=== PATIENT | male | born 1960 | race Caucasian/White ===

== ENCOUNTER 2019-04-23 13:00 | Outpatient (CLI) | payer OTHER, SELFPAY ==
[2019-04-23 13:28] LABS: Basophils % 0.7 %; Eosinophils # 0.2 10^3/uL (0.0-0.8); Eosinophils % 7.1 %; Hematocrit 34.6 % (42.0-52.0); Hemoglobin 12.3 g/dL (11.7-16.6); Lymphocytes # 0.9 10^3/uL (0.8-4.8); Lymphocytes % 29.8 %; Mean Corpuscular HGB Conc 35.5 g/dL (30.0-36.0); Mean Corpuscular Hemoglobin 34.6 pg (28.0-34.0); Mean Corpuscular Volume 97.5 fL (80-94); Mean Platelet Volume 11.2 fL (7.4-10.4); Monocytes # 0.3 10^3/uL (0.2-0.9); Monocytes % 10.5 %; Neutrophils # 1.5 10^3/uL (1.8-7.7); Neutrophils % 51.6 %; Nucleated Red Blood Cells % 0 %; Platelet Count 56 10^3/cmm (130-400); Red Blood Count 3.55 10^6/uL (4.1-5.3); Red Cell Distribution Width 13.6 % (12.1-15.1)
== END 2019-04-23 13:01 | disposition home or self-care (01) ==
LOC: ONCMED 13:03
PROVIDERS: Family Provider Internal Medicine; PCP Internal Medicine; Visit Provider Internal Medicine Hematology & Oncology
DX: E83.119 Hemochromatosis, unspecified (principal)
CPT/HCPCS: 85025

== ENCOUNTER 2019-04-25 14:11 | Outpatient (CLI) | payer OTHER, SELFPAY ==
[2019-04-25] MEDS: sodium chloride 0.9% 250 ML 999 ML IV ×2 (15:00→15:31)
== END 2019-04-25 14:12 | disposition home or self-care (01) ==
LOC: ONCMED 14:14
PROVIDERS: Family Provider Internal Medicine; PCP Internal Medicine; Visit Provider Internal Medicine Medical Oncology
DX: E83.119 Hemochromatosis, unspecified (principal)
CPT/HCPCS: 96360; J7050

== ENCOUNTER 2019-04-26 10:39 | Outpatient (CLI) | payer OTHER, SELFPAY ==
[2019-04-26] MEDS: sodium chloride 0.9% 500 ML 999 ML IV (11:15)
== END 2019-04-26 10:40 | disposition home or self-care (01) ==
LOC: ONCMED 10:42
PROVIDERS: Family Provider Internal Medicine; PCP Internal Medicine; Visit Provider Internal Medicine Hematology & Oncology
DX: E86.0 Dehydration (principal)
CPT/HCPCS: 96360; J7040

== ENCOUNTER 2019-05-21 12:43 | Outpatient (CLI) | payer OTHER, SELFPAY ==
[2019-05-21 13:31] LABS: Basophils % 0.6 %; Eosinophils # 0.2 10^3/uL (0.0-0.8); Eosinophils % 7.1 %; Hematocrit 35.7 % (42.0-52.0); Hemoglobin 12.8 g/dL (11.7-16.6); Lymphocytes % 29.2 %; Mean Corpuscular HGB Conc 35.9 g/dL (30.0-36.0); Mean Corpuscular Hemoglobin 34.6 pg (28.0-34.0); Mean Corpuscular Volume 96.5 fL (80-94); Mean Platelet Volume 11.7 fL (7.4-10.4); Monocytes # 0.4 10^3/uL (0.2-0.9); Neutrophils # 1.7 10^3/uL (1.8-7.7); Neutrophils % 51.8 %; Nucleated Red Blood Cells % 0 %; Platelet Count 59 10^3/cmm (130-400); Red Cell Distribution Width 13.5 % (12.1-15.1); White Blood Count 3.4 10^3/uL (4.0-10.0)
== END 2019-05-21 12:44 | disposition home or self-care (01) ==
LOC: ONCMED 12:49
PROVIDERS: Family Provider Internal Medicine; PCP Internal Medicine; Visit Provider Internal Medicine Hematology & Oncology
DX: E83.119 Hemochromatosis, unspecified (principal)
CPT/HCPCS: 36415; 85025; 99195; 99211

== ENCOUNTER 2019-06-20 12:49 | Outpatient (CLI) | payer OTHER, SELFPAY ==
[2019-06-20 13:10] LABS: Eosinophils # 0.2 10^3/uL (0.0-0.8); Eosinophils % 6.8 %; Hematocrit 36.6 % (42.0-52.0); Hemoglobin 12.9 g/dL (11.7-16.6); Lymphocytes # 0.8 10^3/uL (0.8-4.8); Mean Corpuscular HGB Conc 35.2 g/dL (30.0-36.0); Mean Corpuscular Hemoglobin 34.8 pg (28.0-34.0); Mean Corpuscular Volume 98.7 fL (80-94); Mean Platelet Volume 11.4 fL (7.4-10.4); Monocytes # 0.3 10^3/uL (0.2-0.9); Monocytes % 10.7 %; Neutrophils # 1.7 10^3/uL (1.8-7.7); Neutrophils % 56.5 %; Nucleated Red Blood Cells % 0 %; Platelet Count 55 10^3/cmm (130-400); Red Blood Count 3.71 10^6/uL (4.1-5.3); White Blood Count 3.1 10^3/uL (4.0-10.0)
[2019-06-20 13:22] LABS: Ferritin 99 ng/mL (30-400)
--- NOTE | 2019-06-20 14:29 | ONC FU_ITS ---
Dr. Deluca follow up note Patient: Kris Horn Unit #: [id number]: 1960 Dicatated By: Reanna Deluca M.D.Date of Visit:Jun 20, 2019 Onc Med Follow-up/Prog Note History of Present Illness: Mr. Kris Horn, 58-year-old gentleman with history of elevated ferritin for long time, in fact about 10 years ago he was seen in hematology clinic by Dr. Brian and workup was done for hemochromatosis. As per patient, at that time his ferritin was high but it was not confirmed whether he has hemochromatosis as expected gene mutation was not observed. But his sister has same problem for which she underwent genetic evaluation and it was confirmed that she has hemochromatosis and now being managed by her steaming machine operator with phlebotomies. Patient said, 7-8 years ago he was diagnosed with esophageal varices for which he was referred to [facility] in [place] where he underwent procedure to treat his esophageal varices as he was bleeding profusely from there. And was treated with medicines to control his portal hypertension. At the same time he had MRI scan of the liver done which confirmed cirrhosis due to alcohol abuse and patient quit drinking at that time and follow-up MRI scan of liver did show some improvement. And along with the liver cirrhosis he was also found to have splenomegaly which was causing thrombocytopenia. Patient said recently he developed severe pain in his feet and he was diagnosed with plantar fasciitis and as a part of workup his primary care physician checked his iron studies and it showed elevated ferritin level , and due to history of iron abnormality, he been referred to hematology clinic to rule out hemochromatosis / iron overload.Now being treated with phlebotomy to keep ferritin less than 100 Patient has type II diabetes mellitus which is being managed by oral hypoglycemic He also has hepatic cirrhosis due to alcohol abuse but he quit drinking about 8 years. Came for follow-up, denies any specific complaint except generalized weakness and fatigue, on gabapentin and also has been busy renovating his new house. No jaundice, no fever or chills, no lightheadedness, no palpitation. Tolerating monthly phlebotomy well Medications: Gabapentin 1 Capsule (of 300 mg) Oral b.i.d., MetFORMIN HCl 1 (1000 mg) Tablet Oral b.i.d., Nadolol 1 (20 mg) Tablet Oral daily, Spironolactone 1 (50 mg) Tablet Oral daily Allergies: No Known Allergies. Review of Systems: Constitutional - Appetite is fair and weight is slowly declining. No fever, chills, hot flashes, or night sweats. Energy level is poor, ENMT - Patient has some sinus congestion/drainage. No mouth sores. No sore throat or difficulty swallowing, Hematologic/Lymphatic - No abnormal bruising or bleeding, Respiratory - No shortness of breath. No cough. No pleuritic pain or hemoptysis, Cardiovascular - No angina pain. No palpitations, Gastrointestinal - No nausea or vomiting. No heartburn or acid reflux. No diarrhea or constipation. No blood in the stool or black stools, Genitourinary (M) - No dysuria or hematuria. No urinary frequency. No urgency or incontinence, Musculoskeletal - No joint or bone pain, Neurologic - No headache or dizziness. Patient has some numbness/paresthesias in lower extremities at night.No other focal neurologic symptoms, Psychiatric - Patient has some anxiety and depression. No insomnia. Vital Signs: Performed on Jun 20, 2019 13:58 Height - 73.00 in Weight - 252.8 lbs (LOW) BSA - 2.38 sq.m BMI - 33.35 (HIGH) Temperature - 97.2 F (LOW) Pulse - 65 /min Respiration - 18 /min BP - 102/70 mm(hg) O2 Sat - 97 % Pain - 0 Performance Status: 0 - Fully active, able to carry on all predisease activities without restrictions. (ECOG) Physical Examination: ENMT - No oral exudates, ulcers, masses, thrush or mucositis. Oropharynx clear. Tongue normal, Respiratory - Lungs are clear to auscultation without rhonchi or wheezing, Cardiovascular - Regular rate and rhythm of heart, Abdomen - Non-tender, non-distended, Good bowel sounds. No guarding or rebound tenderness. No pulsatile masses, Extremities - no edema. Lab/Imaging: Test performed on May 21, 2019 13:00 WBC 3.4 10 3/uL RBC 3.70 10 6/uL HGB 12.8 g/dL HCT 35.7 % MCV 96.5 fL MCH 34.6 pg MCHC 35.9 g/dL RDW 13.5 % Platelet Count 59 10 3/cmm MPV 11.7 fL Neutrophils 1.7 10 3/uL Lymphocytes 1.0 10 3/uL Monocytes 0.4 10 3/uL Eosinophils 0.2 10 3/uL Basophils 0.0 10 3/uL Neutrophil % 51.8 % Lymphocyte % 29.2 % Monocyte % 11.0 % Eosinophil % 7.1 % Basophils % 0.6 % Test performed on Apr 23, 2019 13:08 Manual Lymphocytes 29.8 % Manual Monocytes 10.5 % Manual Eosinophils 7.1 % Manual Basophils 0.7 % NRBCs 0.0 /100 WBC Test performed on Mar 21, 2019 12:14 Ferritin 125.0 ng/ml Impression: Elevated ferritin level with macrocytosis, questionable etiology Positive for rare HFE H63D homozygous mutation Ferritin level of 746 ng per mL normal being 30-400. Checked on 03/09/[address] Brian about 10 years ago, for hemochromatosis was inconclusive Hemochromatosis profile done on 04/22/2017 showed negative for C282Y mutation, negative for as S 65C mutation, homozygous H63D mutation Repeat ferritin was 520.6 normal being less than 388. 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 Plan: Discussed with patient regarding his labs white blood count 3.1 hemoglobin 12.9 hematocrit 36.6 platelets 55,000 ferritin 99 Clinically, patient is doing well, tolerating phlebotomy every month well. We'll proceed with next monthly phlebotomy today and then continue every month as long as tolerated and goal is to get his ferritin close to 50. 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 Is stable, will continue to monitor Signed By: Reanna Deluca M.D. <<Signature on File>>
== END 2019-06-20 12:50 | disposition home or self-care (01) ==
LOC: ONCMED 12:50
PROVIDERS: Family Provider Internal Medicine; PCP Internal Medicine; Visit Provider Internal Medicine Hematology & Oncology
DX: E83.110 Hereditary hemochromatosis (principal); E11.9 Type 2 diabetes mellitus without complications; K70.30 Alcoholic cirrhosis of liver without ascites; F10.21 Alcohol dependence, in remission; K76.6 Portal hypertension; R16.1 Splenomegaly, not elsewhere classified; D69.59 Other secondary thrombocytopenia; Z79.84 Long term (current) use of oral hypoglycemic drugs
CPT/HCPCS: 82728; 85025; 99195; G0463

== ENCOUNTER 2019-07-19 12:22 | Outpatient (CLI) | payer OTHER, SELFPAY ==
[2019-07-19 13:21] LABS: Basophils % 0.4 %; Eosinophils # 0.2 10^3/uL (0.0-0.8); Eosinophils % 6.9 %; Hematocrit 36.2 % (42.0-52.0); Hemoglobin 12.8 g/dL (11.7-16.6); Lymphocytes # 0.8 10^3/uL (0.8-4.8); Lymphocytes % 35.2 %; Mean Corpuscular HGB Conc 35.4 g/dL (30.0-36.0); Mean Corpuscular Hemoglobin 35.2 pg (28.0-34.0); Mean Corpuscular Volume 99.5 fL (80-94); Mean Platelet Volume 12.7 fL (7.4-10.4); Monocytes # 0.2 10^3/uL (0.2-0.9); Monocytes % 8.2 %; Neutrophils # 1.1 10^3/uL (1.8-7.7); Neutrophils % 48.9 %; Nucleated Red Blood Cells % 0 %; Platelet Count 44 10^3/cmm (130-400); Red Blood Count 3.64 10^6/uL (4.1-5.3); Red Cell Distribution Width 13.9 % (12.1-15.1); White Blood Count 2.3 10^3/uL (4.0-10.0)
== END 2019-07-19 12:23 | disposition home or self-care (01) ==
LOC: ONCMED 12:24
PROVIDERS: Family Provider Internal Medicine; PCP Internal Medicine; Visit Provider Internal Medicine Hematology & Oncology
DX: E83.119 Hemochromatosis, unspecified (principal)
CPT/HCPCS: 36415; 85025; 99195; 99211

== ENCOUNTER 2019-08-20 12:05 | Outpatient (CLI) | payer OTHER, SELFPAY ==
[2019-08-20 13:07] LABS: Basophils % 0.7 %; Eosinophils # 0.2 10^3/uL (0.0-0.8); Eosinophils % 8.2 %; Hematocrit 36.2 % (42.0-52.0); Hemoglobin 12.8 g/dL (11.7-16.6); Lymphocytes # 0.8 10^3/uL (0.8-4.8); Lymphocytes % 28.7 %; Mean Corpuscular HGB Conc 35.4 g/dL (30.0-36.0); Mean Corpuscular Hemoglobin 35.4 pg (28.0-34.0); Mean Platelet Volume 11.6 fL (7.4-10.4); Monocytes # 0.3 10^3/uL (0.2-0.9); Monocytes % 9.7 %; Neutrophils # 1.5 10^3/uL (1.8-7.7); Neutrophils % 52.3 %; Nucleated Red Blood Cells % 0 %; Platelet Count 52 10^3/cmm (130-400); Red Blood Count 3.62 10^6/uL (4.1-5.3); Red Cell Distribution Width 13.8 % (12.1-15.1); White Blood Count 2.8 10^3/uL (4.0-10.0)
[2019-08-20 14:45] LABS: Ferritin 101 ng/mL (30-400)
== END 2019-08-20 12:06 | disposition home or self-care (01) ==
LOC: ONCMED 12:05
PROVIDERS: Family Provider Internal Medicine; PCP Internal Medicine; Visit Provider Internal Medicine Medical Oncology
DX: E83.119 Hemochromatosis, unspecified (principal)
CPT/HCPCS: 36415; 82728; 85025; 99195

== ENCOUNTER 2019-08-30 13:00 | Outpatient (CLI) | payer OTHER, SELFPAY ==
[2019-08-30 13:52] LABS: Basophils % 0.8 %; Eosinophils # 0.2 10^3/uL (0.0-0.8); Eosinophils % 6.9 %; Hematocrit 35.9 % (42.0-52.0); Hemoglobin 12.9 g/dL (11.7-16.6); Lymphocytes # 0.8 10^3/uL (0.8-4.8); Lymphocytes % 30.4 %; Mean Corpuscular HGB Conc 35.9 g/dL (30.0-36.0); Mean Corpuscular Hemoglobin 35.2 pg (28.0-34.0); Mean Corpuscular Volume 98.1 fL (80-94); Mean Platelet Volume 11.6 fL (7.4-10.4); Monocytes # 0.3 10^3/uL (0.2-0.9); Monocytes % 9.6 %; Neutrophils # 1.4 10^3/uL (1.8-7.7); Neutrophils % 52.3 %; Nucleated Red Blood Cells % 0 %; Platelet Count 48 10^3/cmm (130-400); Red Blood Count 3.66 10^6/uL (4.1-5.3); Red Cell Distribution Width 13.5 % (12.1-15.1); White Blood Count 2.6 10^3/uL (4.0-10.0)
[2019-08-30] MEDS: sodium chloride 0.9% 250 ML 999 ML IV (14:00)
[2019-08-30 14:03] LABS: Ferritin 93 ng/mL (30-400)
== END 2019-08-30 13:01 | disposition home or self-care (01) ==
PROVIDERS: PCP Internal Medicine; Visit Provider Internal Medicine Hematology & Oncology
DX: D75.89 Other specified diseases of blood and blood-forming organs (principal); E83.119 Hemochromatosis, unspecified; K74.60 Unspecified cirrhosis of liver; K76.6 Portal hypertension; R16.1 Splenomegaly, not elsewhere classified; D69.59 Other secondary thrombocytopenia; D72.819 Decreased white blood cell count, unspecified
CPT/HCPCS: 82728; 85025; 99195; J7050

== ENCOUNTER 2019-09-19 12:12 | Outpatient (CLI) | payer OTHER, SELFPAY ==
[2019-09-19 13:05] LABS: Basophils % 1.1 %; Eosinophils # 0.2 10^3/uL (0.0-0.8); Eosinophils % 6.4 %; Hematocrit 33.4 % (42.0-52.0); Hemoglobin 11.9 g/dL (11.7-16.6); Lymphocytes # 0.9 10^3/uL (0.8-4.8); Lymphocytes % 30.6 %; Mean Corpuscular HGB Conc 35.6 g/dL (30.0-36.0); Mean Corpuscular Hemoglobin 35.1 pg (28.0-34.0); Mean Corpuscular Volume 98.5 fL (80-94); Mean Platelet Volume 11.9 fL (7.4-10.4); Monocytes # 0.3 10^3/uL (0.2-0.9); Monocytes % 9.3 %; Neutrophils # 1.5 10^3/uL (1.8-7.7); Neutrophils % 52.6 %; Nucleated Red Blood Cells % 0 %; Platelet Count 52 10^3/cmm (130-400); Red Blood Count 3.39 10^6/uL (4.1-5.3); Red Cell Distribution Width 13.4 % (12.1-15.1); White Blood Count 2.8 10^3/uL (4.0-10.0)
[2019-09-19 13:38] LABS: Ferritin 89 ng/mL (30-400)
--- NOTE | 2019-09-19 15:09 | ONC FU_ITS ---
Dr. Deluca follow up note Patient: Kris Horn Unit #: [id number]: 1960 Dicatated By: Reanna Deluca M.D.Date of Visit:Sep 19, 2019 Onc Med Follow-up/Prog Note History of Present Illness: Mr. Kris Horn, 59-year-old gentleman with history of elevated ferritin for long time, in fact about 10 years ago he was seen in hematology clinic by Dr. Brian and workup was done for hemochromatosis. As per patient, at that time his ferritin was high but it was not confirmed whether he has hemochromatosis as expected gene mutation was not observed. But his sister has same problem for which she underwent genetic evaluation and it was confirmed that she has hemochromatosis and now being managed by her bottle gauger with phlebotomies. Patient said, 7-8 years ago he was diagnosed with esophageal varices for which he was referred to [facility] in [place] where he underwent procedure to treat his esophageal varices as he was bleeding profusely from there. And was treated with medicines to control his portal hypertension. At the same time he had MRI scan of the liver done which confirmed cirrhosis due to alcohol abuse and patient quit drinking at that time and follow-up MRI scan of liver did show some improvement. And along with the liver cirrhosis he was also found to have splenomegaly which was causing thrombocytopenia. Patient said recently he developed severe pain in his feet and he was diagnosed with plantar fasciitis and as a part of workup his primary care physician checked his iron studies and it showed elevated ferritin level , and due to history of iron abnormality, he been referred to hematology clinic to rule out hemochromatosis / iron overload.Now being treated with phlebotomy to keep ferritin less than 100 Patient has type II diabetes mellitus which is being managed by oral hypoglycemic He also has hepatic cirrhosis due to alcohol abuse but he quit drinking about 8 years. Came for follow-up, denies any specific complaints, no fever or chills, no nausea or vomiting, no diarrhea constipation, no melena or hematochezia, no nosebleed or gum bleed, no petechiae or ecchymosis, no jaundice Medications: Gabapentin 1 Capsule (of 300 mg) Oral b.i.d., MetFORMIN HCl 1 (1000 mg) Tablet Oral b.i.d., Nadolol 1 (20 mg) Tablet Oral daily, Spironolactone 1 (50 mg) Tablet Oral daily Allergies: No Known Allergies. Review of Systems: Constitutional - Appetite is fair and weight is slowly declining. No fever, chills, hot flashes, or night sweats. Energy level is poor, ENMT - Patient has some sinus congestion/drainage. No mouth sores. No sore throat or difficulty swallowing, Hematologic/Lymphatic - No abnormal bruising or bleeding, Respiratory - No shortness of breath. No cough. No pleuritic pain or hemoptysis, Cardiovascular - No angina pain. No palpitations, Gastrointestinal - No nausea or vomiting. No heartburn or acid reflux. No diarrhea or constipation. No blood in the stool or black stools, Genitourinary (M) - No dysuria or hematuria. No urinary frequency. No urgency or incontinence, Musculoskeletal - No joint or bone pain, Neurologic - No headache or dizziness. Patient has some numbness/paresthesias in lower extremities at night.No other focal neurologic symptoms, Psychiatric - Patient has some anxiety and depression. No insomnia. Vital Signs: Performed on Sep 19, 2019 13:39 Height - 73.00 in Weight - 247.8 lbs (LOW) BSA - 2.36 sq.m BMI - 32.69 (HIGH) Temperature - 97.8 F (LOW) Pulse - 70 /min Respiration - 18 /min BP - 111/71 mm(hg) O2 Sat - 98 % Pain - 0 Performance Status: 0 - Fully active, able to carry on all predisease activities without restrictions. (ECOG) Physical Examination: ENMT - no mouth sores, no thrush, Respiratory - Lungs are clear, Cardiovascular - Regular rate and rhythm of heart, Abdomen - soft, bowel sounds present, Extremities - no edema or rash or jaundice. Lab/Imaging: Test performed on Sep 19, 2019 12:28 Ferritin 89 ng/mL WBC 2.8 10^9/L RBC 3.39 10^12/L HGB 11.9 g/dL HCT 33.4 % MCV 98.5 fl MCH 35.1 pg MCHC 35.6 g/dL RDW 13.4 % Platelet Count 52 10^9/L MPV 11.9 fL Neutrophils (Gran) 1.5 10^9/L Lymphocytes 0.9 10^9/L Monocytes 0.3 10^9/L Eosinophils 0.2 10^9/L Basophils 0.0 10^9/L Manual Lymphocytes 30.6 % Manual Monocytes 9.3 % Manual Eosinophils 6.4 % Manual Basophils 1.1 % Test performed on August 30, 2019 13:31 Neutrophil % 52.3 % Lymphocyte % 30.4 % Monocyte % 9.6 % Eosinophil % 6.9 % Basophils % 0.8 % Test performed on Apr 23, 2019 13:08 NRBCs 0.0 /100 WBC Impression: Elevated ferritin level with macrocytosis, questionable etiology Positive for rare HFE H63D homozygous mutation Ferritin level of 746 ng per mL normal being 30-400. Checked on 03/09/[address] Brian about 10 years ago, for hemochromatosis was inconclusive Hemochromatosis profile done on 04/22/2017 showed negative for C282Y mutation, negative for as S 65C mutation, homozygous H63D mutation Repeat ferritin was 520.6 normal being less than 388. 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 Plan: Discussed with patient regarding his labs white blood count 2.8 hemoglobin 11.9 crit 33.4 platelets 52,000 ferritin 89 Clinically, patient is doing well, with no new signs symptoms. Now being treated with phlebotomy on as-needed basis keep ferritin below 100, today's lab shows ferritin is 89 and hemoglobin stable around 11.9 , whereas [id number] 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 but stable, will continue to monitor return to clinic in 2 months with CBC and ferritin Signed By: Reanna Deluca M.D. <<Signature on File>>
== END 2019-09-19 12:13 | disposition home or self-care (01) ==
LOC: ONCMED 12:18
PROVIDERS: PCP Internal Medicine; Visit Provider Internal Medicine Hematology & Oncology
DX: D75.89 Other specified diseases of blood and blood-forming organs (principal); M72.2 Plantar fascial fibromatosis; K57.92 Diverticulitis of intestine, part unspecified, without perforation or abscess without bleeding; K74.60 Unspecified cirrhosis of liver; K76.6 Portal hypertension; R16.1 Splenomegaly, not elsewhere classified; D69.6 Thrombocytopenia, unspecified; D72.819 Decreased white blood cell count, unspecified; Z83.2 Family history of diseases of the blood and blood-forming organs and certain disorders involving the immune mechanism
CPT/HCPCS: 82728; 85025; G0463

== ENCOUNTER 2019-11-20 11:11 | Outpatient (CLI) | payer OTHER, SELFPAY ==
[2019-11-20 11:33] LABS: Basophils % 0.4 %; Eosinophils # 0.1 10^3/uL (0.0-0.8); Eosinophils % 5.5 %; Hematocrit 35.1 % (42.0-52.0); Hemoglobin 12.6 g/dL (11.7-16.6); Lymphocytes # 0.8 10^3/uL (0.8-4.8); Lymphocytes % 32.2 %; Mean Corpuscular HGB Conc 35.9 g/dL (30.0-36.0); Mean Corpuscular Hemoglobin 35.6 pg (28.0-34.0); Mean Corpuscular Volume 99.2 fL (80-94); Mean Platelet Volume 11.4 fL (7.4-10.4); Monocytes # 0.2 10^3/uL (0.2-0.9); Monocytes % 10.2 %; Neutrophils # 1.22 10^3/uL (1.8-7.7); Neutrophils % 51.7 %; Nucleated Red Blood Cells % 0 %; Platelet Count 45 10^3/cmm (130-400); Red Blood Count 3.54 10^6/uL (4.1-5.3); Red Cell Distribution Width 13.9 % (12.1-15.1); White Blood Count 2.4 10^3/uL (4.0-10.0)
[2019-11-20 11:46] LABS: Ferritin 140 ng/mL (30-400)
[2019-11-20 15:02] LABS: Erythrocyte Sedimentation Rate 11 mm/hr (0-10)
--- NOTE | 2019-11-20 16:19 | ONC FU_ITS ---
Dr. Deluca follow up note Patient: Kris Horn Unit #: [id number]: 1960 Dicatated By: Reanna Deluca M.D.Date of Visit:Nov 20, 2019 Onc Med Follow-up/Prog Note History of Present Illness: Mr. Kris Horn, 59-year-old gentleman with history of elevated ferritin for long time, in fact about 10 years ago he was seen in hematology clinic by Dr. Brian and workup was done for hemochromatosis. As per patient, at that time his ferritin was high but it was not confirmed whether he has hemochromatosis as expected gene mutation was not observed. But his sister has same problem for which she underwent genetic evaluation and it was confirmed that she has hemochromatosis and now being managed by her headliner installer with phlebotomies. Patient said, 7-8 years ago he was diagnosed with esophageal varices for which he was referred to [facility] in [place] where he underwent procedure to treat his esophageal varices as he was bleeding profusely from there. And was treated with medicines to control his portal hypertension. At the same time he had MRI scan of the liver done which confirmed cirrhosis due to alcohol abuse and patient quit drinking at that time and follow-up MRI scan of liver did show some improvement. And along with the liver cirrhosis he was also found to have splenomegaly which was causing thrombocytopenia. Patient said recently he developed severe pain in his feet and he was diagnosed with plantar fasciitis and as a part of workup his primary care physician checked his iron studies and it showed elevated ferritin level , and due to history of iron abnormality, he been referred to hematology clinic to rule out hemochromatosis / iron overload.Now being treated with phlebotomy to keep ferritin less than 100 Patient has type II diabetes mellitus which is being managed by oral hypoglycemic He also has hepatic cirrhosis due to alcohol abuse but he quit drinking about 8 years. Came for follow-up, denies any specific complaint except generalized weakness and fatigue but no nausea or vomiting no diarrhea or constipation, no jaundice, no melena or hematochezia, no hemoptysis or hematemesis, no fever or chills. Tolerating phlebotomies on as-needed basis well Medications: Gabapentin 1 Capsule (of 300 mg) Oral t.i.d., MetFORMIN HCl 1 (1000 mg) Tablet Oral b.i.d., Nadolol 1 (20 mg) Tablet Oral daily, Spironolactone 1 (50 mg) Tablet Oral daily Allergies: No Known Allergies. Review of Systems: Constitutional - Appetite is fair and weight is slowly declining. No fever, chills, hot flashes, or night sweats. Energy level is poor, ENMT - Patient has some sinus congestion/drainage. No mouth sores. No sore throat or difficulty swallowing, Hematologic/Lymphatic - No abnormal bruising or bleeding, Respiratory - No shortness of breath. No cough. No pleuritic pain or hemoptysis, Cardiovascular - No angina pain. No palpitations, Gastrointestinal - No nausea or vomiting. No heartburn or acid reflux. No diarrhea or constipation. No blood in the stool or black stools, Genitourinary (M) - No dysuria or hematuria. No urinary frequency. No urgency or incontinence, Musculoskeletal - No joint or bone pain, Neurologic - No headache or dizziness. Patient has some numbness/paresthesias in lower extremities at night.No other focal neurologic symptoms, Psychiatric - Patient has some anxiety and depression. No insomnia. Vital Signs: Performed on Nov 20, 2019 12:58 Height - 73.00 in Weight - 251.2 lbs (HIGH) BSA - 2.37 sq.m BMI - 33.14 (HIGH) Temperature - 97.7 F (LOW) Pulse - 69 /min Respiration - 24 /min BP - 117/67 mm(hg) O2 Sat - 97 % Pain - 0 Performance Status: 1 - No physically strenuous activity, but ambulatory and able to carry out light or sedentary work (e.g. office work, light house work). (ECOG) Physical Examination: ENMT - No mouth sores, no thrush, no jaundice, Respiratory - Lungs are clear, Cardiovascular - Regular rate and rhythm of heart, Abdomen - Soft, bowel sounds present, Extremities - No visible edema. Lab/Imaging: Test performed on Sep 19, 2019 12:28 Ferritin 89 ng/mL WBC 2.8 10 3/uL RBC 3.39 10 6/uL HGB 11.9 g/dL HCT 33.4 % MCV 98.5 fL MCH 35.1 pg MCHC 35.6 g/dL RDW 13.4 % Platelet Count 52 10 3/cmm MPV 11.9 fL Neutrophils 1.5 10 3/uL Lymphocytes 0.9 10 3/uL Monocytes 0.3 10 3/uL Eosinophils 0.2 10 3/uL Basophils 0.0 10 3/uL Neutrophil % 52.6 % Lymphocyte % 30.6 % Manual Lymphocytes 30.6 % Manual Monocytes 9.3 % Monocyte % 9.3 % Eosinophil % 6.4 % Manual Eosinophils 6.4 % Basophils % 1.1 % Manual Basophils 1.1 % Impression: Elevated ferritin level with macrocytosis, questionable etiology Positive for rare HFE H63D homozygous mutation Ferritin level of 746 ng per mL normal being 30-400. Checked on 03/09/[address] Brian about 10 years ago, for hemochromatosis was inconclusive Hemochromatosis profile done on 04/22/2017 showed negative for C282Y mutation, negative for as S 65C mutation, homozygous H63D mutation ( Moderate risk for iron overload) Repeat ferritin was 520.6 normal being less than 388. 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 Plan: Discussed with patient regarding his labs white blood count 2.4 hemoglobin 12.6 crit 35.1 platelets 45,000 ferritin 140 Clinically, patient is doing reasonably well, with no new signs symptoms, his follow-up labs shows progressive leukopenia/thrombocytopenia with hemoglobin within normal range his ferritin has gone up to 140 compared to 89 on September 19, 2019. E.g. iron overload versus acute phase reactant. Concern is patient's progressive weakness which could be due to iron deficiency if ferritin is elevated as a acute phase reactant and that can also explain progressive thrombocytopenia of course it could be due to progressive splenic sequestration. At this point we will hold his phlebotomy, consider liver scan with liver hemochromatosis protocol at [facility] in [place] to assess tissue iron overload and also consider sed rate, if is elevated, his ferritin may be fluctuating as acute phase reactant, in that case we may hold phlebotomy and check full panel iron studies. Patient return to clinic in 1 month with CBC and iron studies and with sed rate as well as liver scan per liver hemochromatosis protocol. Signed By: Reanna Deluca M.D. <<Signature on File>>
== END 2019-11-20 11:12 | disposition home or self-care (01) ==
LOC: ONCMED 11:11
PROVIDERS: PCP Internal Medicine; Visit Provider Internal Medicine Hematology & Oncology
DX: R79.89 Other specified abnormal findings of blood chemistry (principal); D69.6 Thrombocytopenia, unspecified; D72.819 Decreased white blood cell count, unspecified; K70.30 Alcoholic cirrhosis of liver without ascites; F10.11 Alcohol abuse, in remission; K76.6 Portal hypertension; D73.2 Chronic congestive splenomegaly; Z83.2 Family history of diseases of the blood and blood-forming organs and certain disorders involving the immune mechanism
CPT/HCPCS: 82728; 85025; 85651; 99214

== ENCOUNTER 2019-12-20 09:30 | Outpatient (CLI) | payer OTHER, SELFPAY ==
[2019-12-20 09:57] LABS: Basophils % 0.6 %; Eosinophils # 0.2 10^3/uL (0.0-0.8); Eosinophils % 6.5 %; Hematocrit 37.8 % (42.0-52.0); Hemoglobin 13.5 g/dL (11.7-16.6); Lymphocytes % 28.9 %; Mean Corpuscular HGB Conc 35.7 g/dL (30.0-36.0); Mean Corpuscular Hemoglobin 36.2 pg (28.0-34.0); Mean Corpuscular Volume 101.3 fL (80-94); Mean Platelet Volume 11.3 fL (7.4-10.4); Monocytes # 0.4 10^3/uL (0.2-0.9); Monocytes % 10.3 %; Neutrophils # 1.81 10^3/uL (1.8-7.7); Neutrophils % 53.4 %; Nucleated Red Blood Cells % 0 %; Platelet Count 54 10^3/cmm (130-400); Red Blood Count 3.73 10^6/uL (4.1-5.3); Red Cell Distribution Width 14.4 % (12.1-15.1); White Blood Count 3.4 10^3/uL (4.0-10.0)
[2019-12-20 10:21] LABS: Ferritin 183 ng/mL (30-400)
== END 2019-12-20 09:31 | disposition home or self-care (01) ==
LOC: ONCMED 09:30
PROVIDERS: PCP Internal Medicine; Visit Provider Internal Medicine Hematology & Oncology
DX: R79.89 Other specified abnormal findings of blood chemistry (principal)
CPT/HCPCS: 82728; 85025

== ENCOUNTER 2019-12-21 06:10 | Outpatient (CLI) | payer OTHER, SELFPAY ==
--- NOTE | 2019-12-21 12:54 | ONC FU_ITS ---
Dr. Deluca follow up note Patient: Kris Horn Unit #: [id number]: [id number] Dicatated By: Reanna Deluca M.D.Date of Visit:Dec 21, 2019 Telehealth Progress Note The patient has been informed that the visit may not be secure and acknowledged the information. I have explained the option of participating in a telephone or video visit during the COVID-19 public health emergency to the patient. After being given an opportunity to ask questions about and discuss this type of visit, the patient verbally consented to proceeding with the telephone/video visit. the patient understands that this service replaces an office visit and they may be billed and /or responsible for any applicable copayments History of Present Illness: Mr. Kris Horn, 59-year-old gentleman with history of elevated ferritin for long time, in fact about 10 years ago he was seen in hematology clinic by Dr. Brian and workup was done for hemochromatosis. As per patient, at that time his ferritin was high but it was not confirmed whether he has hemochromatosis as expected gene mutation was not observed. But his sister has same problem for which she underwent genetic evaluation and it was confirmed that she has hemochromatosis and now being managed by her director traffic and planning with phlebotomies. Patient said, 7-8 years ago he was diagnosed with esophageal varices for which he was referred to [facility] in [place] where he underwent procedure to treat his esophageal varices as he was bleeding profusely from there. And was treated with medicines to control his portal hypertension. At the same time he had MRI scan of the liver done which confirmed cirrhosis due to alcohol abuse and patient quit drinking at that time and follow-up MRI scan of liver did show some improvement. And along with the liver cirrhosis he was also found to have splenomegaly which was causing thrombocytopenia. Patient said recently he developed severe pain in his feet and he was diagnosed with plantar fasciitis and as a part of workup his primary care physician checked his iron studies and it showed elevated ferritin level , and due to history of iron abnormality, he been referred to hematology clinic to rule out hemochromatosis / iron overload.Now being treated with phlebotomy to keep ferritin less than 100 Patient has type II diabetes mellitus which is being managed by oral hypoglycemic He also has hepatic cirrhosis due to alcohol abuse but he quit drinking about 8 years. Evaluated via phone, denies any specific complaint today, no fever chills, no nausea or vomiting, no diarrhea constipation, no headaches blurred vision double vision, no melena or hematochezia, no hematuria, no petechia or ecchymosis, no nosebleed. Medications: Gabapentin 1 Capsule (of 300 mg) Oral t.i.d., MetFORMIN HCl 1 (1000 mg) Tablet Oral b.i.d., Nadolol 1 (20 mg) Tablet Oral daily, Spironolactone 1 (50 mg) Tablet Oral daily Allergies: No Known Allergies. Review of Systems: Review of Systems is not available for this patient. Vital Signs: Vitals are not available for this patient. Performance Status: 0 - Fully active, able to carry on all predisease activities without restrictions. (ECOG) Physical Examination: ENMT - Patient denies any mouth sores or thrush or jaundice, Respiratory - Patient denies any shortness of breath or wheezing, Cardiovascular - Patient denies any palpitation or tachycardia, Abdomen - Patient denies any abdominal pain or fullness, Extremities - Patient denies any lower extremity edema. Lab/Imaging: Test performed on Nov 20, 2019 11:18 Ferritin 140 ng/mL ESR (Sed Rate) 11 mm/hr WBC 2.4 10 3/uL RBC 3.54 10 6/uL HGB 12.6 g/dL HCT 35.1 % MCV 99.2 fL MCH 35.6 pg MCHC 35.9 g/dL RDW 13.9 % Platelet Count 45 10 3/cmm MPV 11.4 fL Neutrophils 1.22 10 3/uL Lymphocytes 0.8 10 3/uL Monocytes 0.2 10 3/uL Eosinophils 0.1 10 3/uL Basophils 0.0 10 3/uL Neutrophil % 51.7 % Lymphocyte % 32.2 % Monocyte % 10.2 % Eosinophil % 5.5 % Basophils % 0.4 % NRBC % 0 % Test performed on Sep 19, 2019 12:28 Manual Lymphocytes 30.6 % Manual Monocytes 9.3 % Manual Eosinophils 6.4 % Manual Basophils 1.1 % Impression: Elevated ferritin level with macrocytosis, questionable etiology Positive for rare HFE H63D homozygous mutation Ferritin level of 746 ng per mL normal being 30-400. Checked on 03/09/[address] Brian about 10 years ago, for hemochromatosis was inconclusive Hemochromatosis profile done on 04/22/2017 showed negative for C282Y mutation, negative for as S 65C mutation, homozygous H63D mutation ( Moderate risk for iron overload) Repeat ferritin was 520.6 normal being less than 388. 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 Plan: Discussed with patient regarding his labs white blood count 3.4 hemoglobin 13.5 hematocrit 37.8 platelet 54,000 ferritin 183 Clinically, patient is doing well, denies any new signs symptom, his follow-up labs is stable with persistent bicytopenia e.g. 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 Patient is scheduled for MRI scan of the liver per hemochromatosis protocol at [facility] on January 12, 2020, we will hold his phlebotomy although his ferritin is gradually going up. And we will see him 1 week after his MRI scan of the liver to discuss further plan and if it shows no excessive iron deposit in the liver in that case we may monitor him with ferritin even in the range of 200-250 on the other hand if it shows increase iron deposit then will continue phlebotomies to keep ferritin less than 50.Time spent on the phone 10 minutes Signed By: Reanna Deluca M.D. <<Signature on File>>
== END 2019-12-21 06:11 | disposition home or self-care (01) ==
LOC: ONCMED 06:11
PROVIDERS: PCP Internal Medicine; Visit Provider Internal Medicine Hematology & Oncology
DX: D69.6 Thrombocytopenia, unspecified (principal); D72.819 Decreased white blood cell count, unspecified; R79.89 Other specified abnormal findings of blood chemistry; R16.1 Splenomegaly, not elsewhere classified

== ENCOUNTER 2020-01-17 11:20 | Outpatient (CLI) | payer OTHER, SELFPAY ==
[2020-01-17 12:31] LABS: Basophils % 0.9 %; Eosinophils # 0.2 10^3/uL (0.0-0.8); Eosinophils % 7.4 %; Hematocrit 36.3 % (42.0-52.0); Hemoglobin 12.7 g/dL (11.7-16.6); Lymphocytes # 0.6 10^3/uL (0.8-4.8); Lymphocytes % 27.6 %; Mean Corpuscular Hemoglobin 36.1 pg (28.0-34.0); Mean Corpuscular Volume 103.1 fL (80-94); Mean Platelet Volume 11.4 fL (7.4-10.4); Monocytes # 0.2 10^3/uL (0.2-0.9); Monocytes % 8.8 %; Neutrophils % 55.3 %; Nucleated Red Blood Cells % 0 %; Platelet Count 42 10^3/cmm (130-400); Red Blood Count 3.52 10^6/uL (4.1-5.3); Red Cell Distribution Width 13.6 % (12.1-15.1); White Blood Count 2.2 10^3/uL (4.0-10.0)
[2020-01-17 12:52] LABS: Ferritin 173 ng/mL (30-400)
== END 2020-01-17 11:21 | disposition home or self-care (01) ==
LOC: ONCMED 11:22
PROVIDERS: PCP Internal Medicine; Visit Provider Internal Medicine Hematology & Oncology
DX: R79.89 Other specified abnormal findings of blood chemistry (principal)
CPT/HCPCS: 82728; 85025

== ENCOUNTER 2020-01-18 05:49 | Outpatient (CLI) | payer OTHER, SELFPAY ==
--- NOTE | 2020-01-18 12:08 | ONC FU_ITS ---
Dr. Deluca follow up note Patient: Kris Horn Unit #: [id number]: [id number] Dicatated By: Reanna Deluca M.D.Date of Visit:Jan 18, 2020 Onc Med Follow-up/Prog Note History of Present Illness: Mr. Kris Horn, 59-year-old gentleman with history of elevated ferritin for long time, in fact about 10 years ago he was seen in hematology clinic by Dr. Brian and workup was done for hemochromatosis. As per patient, at that time his ferritin was high but it was not confirmed whether he has hemochromatosis as expected gene mutation was not observed. But his sister has same problem for which she underwent genetic evaluation and it was confirmed that she has hemochromatosis and now being managed by her life skills worker with phlebotomies. Patient said, 7-8 years ago he was diagnosed with esophageal varices for which he was referred to [facility] in [place] where he underwent procedure to treat his esophageal varices as he was bleeding profusely from there. And was treated with medicines to control his portal hypertension. At the same time he had MRI scan of the liver done which confirmed cirrhosis due to alcohol abuse and patient quit drinking at that time and follow-up MRI scan of liver did show some improvement. And along with the liver cirrhosis he was also found to have splenomegaly which was causing thrombocytopenia.And leukopenia Patient said recently he developed severe pain in his feet and he was diagnosed with plantar fasciitis and as a part of workup his primary care physician checked his iron studies and it showed elevated ferritin level , and due to history of iron abnormality, he been referred to hematology clinic to rule out hemochromatosis / iron overload.Now being treated with phlebotomy to keep ferritin less than 100 Patient has type II diabetes mellitus which is being managed by oral hypoglycemic He also has hepatic cirrhosis due to alcohol abuse but he quit drinking about 8 years. MRI scan of the liver done at [facility] on January 12, 2020 showed cirrhotic liver with multiple cirrhotic nodules with evidence of portal hypertension including splenomegaly and multiple upper abdominal varices. No suspicious hepatic lesion seen. 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 Came for follow-up, denies any specific complaint except chronic discomfort pain in his feet due to plantar fasciitis otherwise no fever chills, no nausea or vomiting, no diarrhea constipation, no nosebleed or gum bleed, no melena or hematochezia, no hematuria. Medications: Gabapentin 1 Capsule (of 300 mg) Oral t.i.d., MetFORMIN HCl 1 (1000 mg) Tablet Oral b.i.d., Nadolol 1 (20 mg) Tablet Oral daily, Spironolactone 1 (50 mg) Tablet Oral daily Allergies: No Known Allergies. Review of Systems: Review of Systems is not available for this patient. Vital Signs: Performed on Jan 18, 2020 11:16 Height - 73.00 in Weight - 248.4 lbs (LOW) BSA - 2.36 sq.m BMI - 32.77 (HIGH) Temperature - 97.2 F (LOW) Pulse - 70 /min Respiration - 24 /min BP - 129/59 mm(hg) O2 Sat - 98 % Pain - 0 Performance Status: 1 - No physically strenuous activity, but ambulatory and able to carry out light or sedentary work (e.g. office work, light house work). (ECOG) Physical Examination: ENMT - No mouth sores, no thrush, no jaundice, Respiratory - Lungs are clear to auscultation, Cardiovascular - Regular rate and rhythm of heart, Abdomen - Soft, bowel sounds present, Extremities - No visible edema. Lab/Imaging: Test performed on Nov 20, 2019 11:18 Ferritin 140 ng/mL ESR (Sed Rate) 11 mm/hr WBC 2.4 10 3/uL RBC 3.54 10 6/uL HGB 12.6 g/dL HCT 35.1 % MCV 99.2 fL MCH 35.6 pg MCHC 35.9 g/dL RDW 13.9 % Platelet Count 45 10 3/cmm MPV 11.4 fL Neutrophils 1.22 10 3/uL Lymphocytes 0.8 10 3/uL Monocytes 0.2 10 3/uL Eosinophils 0.1 10 3/uL Basophils 0.0 10 3/uL Neutrophil % 51.7 % Lymphocyte % 32.2 % Monocyte % 10.2 % Eosinophil % 5.5 % Basophils % 0.4 % NRBC % 0 % Test performed on Sep 19, 2019 12:28 Manual Lymphocytes 30.6 % Manual Monocytes 9.3 % Manual Eosinophils 6.4 % Manual Basophils 1.1 % Impression: Elevated ferritin level with macrocytosis, questionable etiology Positive for rare HFE H63D homozygous mutation Ferritin level of 746 ng per mL normal being 30-400. Checked on 03/09/[address] Brian about 10 years ago, for hemochromatosis was inconclusive Hemochromatosis profile done on 04/22/2017 showed negative for C282Y mutation, negative for as S 65C mutation, homozygous H63D mutation ( Moderate risk for iron overload) Repeat ferritin was 520.6 normal being less than 388. 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 Plan: Discussed with patient regarding his labs white blood count 2.2 hemoglobin 12.7 hematocrit 36.3 platelets 42,000 compared to 54,000 on December 20, 2019 and 45,000 on November 20, 2019 ferritin 173 compared to 183 on December 20, 2019 and MRI scan of abdomen done at [facility] on January 12, 2020. Which showed no significant iron deposition. Clinically, doing well with no new signs symptoms his follow-up lab work shows persistent but stable bicytopenia and normal hemoglobin, ferritin is stable his follow-up MRI scan done recently shows no significant iron deposition but cirrhotic changes along with splenomegaly and upper abdominal varices. Based on this information we will hold further phlebotomies and monitor his ferritin and consider phlebotomies on as-needed basis Patient has cirrhosis of liver/splenomegaly portal hypertension upper abdomen varices, patient used to follow-up with wide area network administrator at [facility] but due to his insurance issues and financial reasons he stopped going there, now we will refer him to wide area network administrator in [place] for further evaluation and management and he will return to clinic in 3 months with CBC, ferritin and alpha-fetoprotein. Signed By: Reanna Deluca M.D. <<Signature on File>>
== END 2020-01-18 05:50 | disposition home or self-care (01) ==
PROVIDERS: PCP Internal Medicine; Visit Provider Internal Medicine Hematology & Oncology
DX: R79.89 Other specified abnormal findings of blood chemistry (principal); K70.30 Alcoholic cirrhosis of liver without ascites; F10.11 Alcohol abuse, in remission; K76.6 Portal hypertension; R16.1 Splenomegaly, not elsewhere classified; D69.59 Other secondary thrombocytopenia; D72.818 Other decreased white blood cell count; I81 Portal vein thrombosis; Z83.2 Family history of diseases of the blood and blood-forming organs and certain disorders involving the immune mechanism
CPT/HCPCS: G0463

== ENCOUNTER 2020-04-21 07:58 | Outpatient (CLI) | payer OTHER, SELFPAY ==
[2020-04-21 08:55] LABS: Basophils % 0.9 %; Eosinophils # 0.2 10^3/uL (0.0-0.8); Eosinophils % 6.6 %; Hematocrit 38.8 % (42.0-52.0); Hemoglobin 14.1 g/dL (11.7-16.6); Lymphocytes % 28.6 %; Mean Corpuscular HGB Conc 36.3 g/dL (30.0-36.0); Mean Corpuscular Hemoglobin 35.9 pg (28.0-34.0); Mean Corpuscular Volume 98.7 fL (80-94); Mean Platelet Volume 11.1 fL (7.4-10.4); Monocytes # 0.3 10^3/uL (0.2-0.9); Neutrophils # 1.95 10^3/uL (1.8-7.7); Neutrophils % 55.6 %; Nucleated Red Blood Cells % 0 %; Platelet Count 62 10^3/cmm (130-400); Red Blood Count 3.93 10^6/uL (4.1-5.3); Red Cell Distribution Width 13.3 % (12.1-15.1); White Blood Count 3.5 10^3/uL (4.0-10.0)
[2020-04-21 09:11] LABS: Ferritin 193 ng/mL (30-400)
[2020-04-21 12:11] LABS: Tumor Marker Alpha Fetoprotein 9.3 ng/mL (0-8.3)
== END 2020-04-21 07:59 | disposition home or self-care (01) ==
LOC: ONCMED 08:00
PROVIDERS: PCP Internal Medicine; Visit Provider Internal Medicine Medical Oncology
DX: R79.89 Other specified abnormal findings of blood chemistry (principal)
CPT/HCPCS: 36415; 82105; 82728; 85025

== ENCOUNTER 2020-04-23 05:48 | Outpatient (CLI) | payer OTHER, SELFPAY ==
--- NOTE | 2020-04-24 11:50 | ONC FU_ITS ---
Dr. Deluca follow up note Patient: Kris Horn Unit #: [id number]: [id number] Dicatated By: Reanna Deluca M.D.Date of Visit:Apr 23, 2020 Onc Med Follow-up/Prog Note History of Present Illness: Mr. Kris Horn, 59-year-old gentleman with history of elevated ferritin for long time, in fact about 10 years ago he was seen in hematology clinic by Dr. Brian and workup was done for hemochromatosis. As per patient, at that time his ferritin was high but it was not confirmed whether he has hemochromatosis as expected gene mutation was not observed. But his sister has same problem for which she underwent genetic evaluation and it was confirmed that she has hemochromatosis and now being managed by her professor of surgery with phlebotomies. Patient said, 7-8 years ago he was diagnosed with esophageal varices for which he was referred to [facility] in [place] where he underwent procedure to treat his esophageal varices as he was bleeding profusely from there. And was treated with medicines to control his portal hypertension. At the same time he had MRI scan of the liver done which confirmed cirrhosis due to alcohol abuse and patient quit drinking at that time and follow-up MRI scan of liver did show some improvement. And along with the liver cirrhosis he was also found to have splenomegaly which was causing thrombocytopenia.And leukopenia Patient said recently he developed severe pain in his feet and he was diagnosed with plantar fasciitis and as a part of workup his primary care physician checked his iron studies and it showed elevated ferritin level , and due to history of iron abnormality, he been referred to hematology clinic to rule out hemochromatosis / iron overload.Now being treated with phlebotomy to keep ferritin less than 100 Patient has type II diabetes mellitus which is being managed by oral hypoglycemic He also has hepatic cirrhosis due to alcohol abuse but he quit drinking about 8 years. MRI scan of the liver done at [place] on January 12, 2020 showed cirrhotic liver with multiple cirrhotic nodules with evidence of portal hypertension including splenomegaly and multiple upper abdominal varices. No suspicious hepatic lesion seen. 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 Came for follow-up, denies any specific complaints, no fever chills, no nausea or vomiting, no diarrhea constipation, patient was referred to drop shipment clerk in [place] but patient decided to follow-up with his PMD, because of financial reasons he decided not to go to drop shipment clerk [place], and had abdominal sonogram done here on February 28, 2020 which showed persistent splenomegaly and liver shows no cysts, no masses or dilated intrahepatic ducts. Patient said since he is off phlebotomies he is more energetic and feeling much better Medications: Gabapentin 1 Capsule (of 300 mg) Oral t.i.d., MetFORMIN HCl 1 (1000 mg) Tablet Oral b.i.d., Nadolol 1 (20 mg) Tablet Oral daily, Spironolactone 1 (50 mg) Tablet Oral daily Allergies: No Known Allergies. Review of Systems: Review of Systems is not available for this patient. Vital Signs: Performed on Apr 23, 2020 12:38 Height - 73.00 in Weight - 248.8 lbs (HIGH) BSA - 2.36 sq.m BMI - 32.83 (HIGH) Temperature - 97.0 F (LOW) Pulse - 71 /min Respiration - 16 /min BP - 126/64 mm(hg) O2 Sat - 97 % Pain - 0 Performance Status: 1 - No physically strenuous activity, but ambulatory and able to carry out light or sedentary work (e.g. office work, light house work). (ECOG) Physical Examination: ENMT - No mouth sores, no thrush, no, Respiratory - Lungs are clear to auscultation, Cardiovascular - Regular rate and rhythm of heart, Abdomen - Soft, bowel sounds present, Extremities - No visible edema. Lab/Imaging: Test performed on Apr 21, 2020 08:25 Ferritin 193 ng/mL WBC 3.5 10 3/uL RBC 3.93 10 6/uL HGB 14.1 g/dL HCT 38.8 % MCV 98.7 fL MCH 35.9 pg MCHC 36.3 g/dL RDW 13.3 % Platelet Count 62 10 3/cmm MPV 11.1 fL Neutrophils 1.95 10 3/uL Lymphocytes 1.0 10 3/uL Monocytes 0.3 10 3/uL Eosinophils 0.2 10 3/uL Basophils 0.0 10 3/uL Neutrophil % 55.6 % Lymphocyte % 28.6 % Monocyte % 8.0 % Eosinophil % 6.6 % Basophils % 0.9 % NRBC % 0 % AFP 9.3 ng/mL Test performed on Nov 20, 2019 11:18 ESR (Sed Rate) 11 mm/hr Impression: Elevated ferritin level with macrocytosis, questionable etiology Positive for rare HFE H63D homozygous mutation Ferritin level of 746 ng per mL normal being 30-400. Checked on 03/09/[address] Brian about 10 years ago, for hemochromatosis was inconclusive Hemochromatosis profile done on 04/22/2017 showed negative for C282Y mutation, negative for as S 65C mutation, homozygous H63D mutation ( Moderate risk for iron overload) Repeat ferritin was 520.6 normal being less than 388. 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 Plan: Discussed with patient regarding his labs white blood count 3.5 hemoglobin 14.1 hematocrit 38.8 platelets 62,000 compared to 42,000 on January 17, 2020 Clinically, patient is doing reasonably well with no new signs symptoms and his follow-up CBC shows persistent bicytopenia probably due to splenomegaly and hemoglobin in normal range his ferritin has gone up to 193 compared to 173 on January 17, 2020, earlier goal was to keep it below 50 but patient was feeling weak and tired with repeated phlebotomies, as in the past MRI scan of the abdomen done in December 19, 2019 showed no significant iron deposition in the liver so we will consider keeping his ferritin below 150, if patient tolerate better then will try to get it below 100 as long as patient is not symptomatic due to phlebotomies. So we will proceed with phlebotomy today and then he will return to clinic in 1 month with CBC and ferritin his lab work-up done last time showed alpha-fetoprotein was 9.3 normal being less than 8.30, patient is high risk for hepatocellular carcinoma because of hepatic cirrhosis and he was recommended to see a drop shipment clerk in [place], the patient has decided to follow-up with PMD and recently done abdominal sonogram ordered by PMD showed no hepatic lesion, will monitor him closely and follow-up with alpha-fetoprotein and if it continues to go up may consider MRI scan of the liver. Signed By: Reanna Deluca M.D. <<Signature on File>>
== END 2020-04-23 05:49 | disposition home or self-care (01) ==
LOC: ONCMED 05:50
PROVIDERS: PCP Internal Medicine; Visit Provider Internal Medicine Hematology & Oncology
DX: E61.1 Iron deficiency (principal); D72.829 Elevated white blood cell count, unspecified; Z86.2 Personal history of diseases of the blood and blood-forming organs and certain disorders involving the immune mechanism; E11.42 Type 2 diabetes mellitus with diabetic polyneuropathy; Z79.4 Long term (current) use of insulin; Z99.81 Dependence on supplemental oxygen; N28.9 Disorder of kidney and ureter, unspecified
CPT/HCPCS: 99195; 99214

== ENCOUNTER 2020-05-26 13:43 | Outpatient (CLI) | payer OTHER, SELFPAY ==
[2020-05-26 14:16] LABS: Basophils % 1.2 %; Eosinophils # 0.2 10^3/uL (0.0-0.8); Eosinophils % 6.2 %; Hematocrit 37.1 % (42.0-52.0); Hemoglobin 13.3 g/dL (11.7-16.6); Lymphocytes # 0.9 10^3/uL (0.8-4.8); Lymphocytes % 28.9 %; Mean Corpuscular HGB Conc 35.8 g/dL (30.0-36.0); Mean Corpuscular Hemoglobin 35.6 pg (28.0-34.0); Mean Corpuscular Volume 99.2 fL (80-94); Mean Platelet Volume 11.1 fL (7.4-10.4); Monocytes # 0.3 10^3/uL (0.2-0.9); Monocytes % 10.2 %; Neutrophils # 1.71 10^3/uL (1.8-7.7); Neutrophils % 53.2 %; Nucleated Red Blood Cells % 0 %; Platelet Count 54 10^3/cmm (130-400); Red Blood Count 3.74 10^6/uL (4.1-5.3); Red Cell Distribution Width 13.3 % (12.1-15.1); White Blood Count 3.2 10^3/uL (4.0-10.0)
[2020-05-26 14:40] LABS: Ferritin 149 ng/mL (30-400)
== END 2020-05-26 13:44 | disposition home or self-care (01) ==
LOC: ONCMED 13:45
PROVIDERS: PCP Internal Medicine; Visit Provider Internal Medicine Medical Oncology
DX: D69.6 Thrombocytopenia, unspecified (principal); D50.9 Iron deficiency anemia, unspecified; R79.89 Other specified abnormal findings of blood chemistry
CPT/HCPCS: 82728; 85025

== ENCOUNTER 2020-05-27 05:43 | Outpatient (CLI) | payer OTHER, SELFPAY ==
--- NOTE | 2020-05-27 11:16 | ONC FU_ITS ---
Dr. Deluca follow up note Patient: Kris Horn Unit #: [id number]: 1960 Dicatated By: Reanna Deluca M.D.Date of Visit:May 27, 2020 Onc Med Follow-up/Prog Note History of Present Illness: Mr. Kris Horn, 59-year-old gentleman with history of elevated ferritin for long time, in fact about 10 years ago he was seen in hematology clinic by Dr. Brian and workup was done for hemochromatosis. As per patient, at that time his ferritin was high but it was not confirmed whether he has hemochromatosis as expected gene mutation was not observed. But his sister has same problem for which she underwent genetic evaluation and it was confirmed that she has hemochromatosis and now being managed by her flight operations specialist with phlebotomies. Patient said, 7-8 years ago he was diagnosed with esophageal varices for which he was referred to [facility] in [place] where he underwent procedure to treat his esophageal varices as he was bleeding profusely from there. And was treated with medicines to control his portal hypertension. At the same time he had MRI scan of the liver done which confirmed cirrhosis due to alcohol abuse and patient quit drinking at that time and follow-up MRI scan of liver did show some improvement. And along with the liver cirrhosis he was also found to have splenomegaly which was causing thrombocytopenia.And leukopenia Patient said recently he developed severe pain in his feet and he was diagnosed with plantar fasciitis and as a part of workup his primary care physician checked his iron studies and it showed elevated ferritin level , and due to history of iron abnormality, he been referred to hematology clinic to rule out hemochromatosis / iron overload.Now being treated with phlebotomy to keep ferritin less than 100 Patient has type II diabetes mellitus which is being managed by oral hypoglycemic He also has hepatic cirrhosis due to alcohol abuse but he quit drinking about 8 years. MRI scan of the liver done at [place] on January 12, 2020 showed cirrhotic liver with multiple cirrhotic nodules with evidence of portal hypertension including splenomegaly and multiple upper abdominal varices. No suspicious hepatic lesion seen. 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 Came for follow-up, denies any specific complaints, no fever chills, no nausea or vomiting, no diarrhea or constipation, no melena or hematochezia, no hemoptysis hematemesis, no jaundice, tolerating phlebotomies well Medications: Gabapentin 1 Capsule (of 300 mg) Oral t.i.d., MetFORMIN HCl 1 (1000 mg) Tablet Oral b.i.d., Nadolol 1 (20 mg) Tablet Oral daily, Spironolactone 1 (50 mg) Tablet Oral daily Allergies: No Known Allergies. Review of Systems: Review of Systems is not available for this patient. Vital Signs: Performed on May 27, 2020 10:34 Height - 73.00 in Weight - 253.0 lbs (HIGH) BSA - 2.38 sq.m BMI - 33.38 (HIGH) Temperature - 96.8 F (LOW) Pulse - 72 /min Respiration - 16 /min BP - 131/59 mm(hg) O2 Sat - 98 % Pain - 0 Performance Status: 1 - No physically strenuous activity, but ambulatory and able to carry out light or sedentary work (e.g. office work, light house work). (ECOG) Physical Examination: ENMT - No mouth sores, no thrush, no jaundice, Respiratory - Lungs are clear to auscultation, Cardiovascular - Regular rate and rhythm of heart, Abdomen - Soft, bowel sounds present, Extremities - No visible edema. Lab/Imaging: Test performed on Apr 21, 2020 08:25 Ferritin 193 ng/mL WBC 3.5 10 3/uL RBC 3.93 10 6/uL HGB 14.1 g/dL HCT 38.8 % MCV 98.7 fL MCH 35.9 pg MCHC 36.3 g/dL RDW 13.3 % Platelet Count 62 10 3/cmm MPV 11.1 fL Neutrophils 1.95 10 3/uL Lymphocytes 1.0 10 3/uL Monocytes 0.3 10 3/uL Eosinophils 0.2 10 3/uL Basophils 0.0 10 3/uL Neutrophil % 55.6 % Lymphocyte % 28.6 % Monocyte % 8.0 % Eosinophil % 6.6 % Basophils % 0.9 % NRBC % 0 % AFP 9.3 ng/mL Impression: Elevated ferritin level with macrocytosis, questionable etiology Positive for rare HFE H63D homozygous mutation Ferritin level of 746 ng per mL normal being 30-400. Checked on 03/09/[address] Brian about 10 years ago, for hemochromatosis was inconclusive Hemochromatosis profile done on 04/22/2017 showed negative for C282Y mutation, negative for as S 65C mutation, homozygous H63D mutation ( Moderate risk for iron overload) Repeat ferritin was 520.6 normal being less than 388. 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 As far as hemochromatosis is concerned, his ferritin is improving with biweekly phlebotomies and goal is to keep it below 100, will proceed with next phlebotomy today then he will continue biweekly phlebotomies and return to clinic in 2 months with CBC, ferritin and also check his alpha-fetoprotein Signed By: Reanna Deluca M.D. <<Signature on File>>
== END 2020-05-27 05:44 | disposition home or self-care (01) ==
LOC: ONCMED 05:44
PROVIDERS: PCP Internal Medicine; Visit Provider Internal Medicine Hematology & Oncology
DX: E83.119 Hemochromatosis, unspecified (principal); K74.60 Unspecified cirrhosis of liver; K76.6 Portal hypertension; R16.1 Splenomegaly, not elsewhere classified; D69.6 Thrombocytopenia, unspecified; D72.819 Decreased white blood cell count, unspecified; Z79.899 Other long term (current) drug therapy
CPT/HCPCS: 99214

== ENCOUNTER 2020-05-28 06:05 | Outpatient (CLI) | payer OTHER, SELFPAY | END 2020-05-28 06:06 | disposition home or self-care (01) | LOC: ONCMED 06:06 | PROVIDERS: PCP Internal Medicine; Visit Provider Internal Medicine Medical Oncology | DX: E83.110 Hereditary hemochromatosis (principal); R79.89 Other specified abnormal findings of blood chemistry | CPT/HCPCS: 99195 ==

== ENCOUNTER 2020-06-10 05:59 | Outpatient (CLI) | payer OTHER, SELFPAY ==
[2020-06-10] MEDS: sodium chloride 0.9% 250 ML IV (14:26)
[2020-06-10 14:44] LABS: Basophils % 1.1 %; Eosinophils # 0.2 10^3/uL (0.0-0.8); Eosinophils % 6.8 %; Hemoglobin 12.3 g/dL (11.7-16.6); Lymphocytes # 0.9 10^3/uL (0.8-4.8); Lymphocytes % 31.1 %; Mean Corpuscular HGB Conc 36.2 g/dL (30.0-36.0); Mean Corpuscular Hemoglobin 35.9 pg (28.0-34.0); Mean Corpuscular Volume 99.1 fL (80-94); Mean Platelet Volume 11.4 fL (7.4-10.4); Monocytes # 0.3 10^3/uL (0.2-0.9); Neutrophils # 1.42 10^3/uL (1.8-7.7); Neutrophils % 50.6 %; Nucleated Red Blood Cells % 0 %; Platelet Count 50 10^3/cmm (130-400); Red Blood Count 3.43 10^6/uL (4.1-5.3); Red Cell Distribution Width 13.8 % (12.1-15.1); White Blood Count 2.8 10^3/uL (4.0-10.0)
[2020-06-10 15:42] LABS: Iron 92 ug/dL (59-158); Percent Saturation 37.8 % (20-50); Total Iron Binding Capacity 243 mcg/dl; Unsaturated Iron Binding 151 ug/dL (112-347)
[2020-06-12 08:14] LABS: Ferritin 118 ng/mL (30-400)
== END 2020-06-10 06:00 | disposition home or self-care (01) ==
LOC: ONCMED 06:00
PROVIDERS: PCP Internal Medicine; Visit Provider Internal Medicine Hematology & Oncology
DX: E83.119 Hemochromatosis, unspecified (principal)
CPT/HCPCS: 82728; 83540; 83550; 85025; 99195; J7050

== ENCOUNTER 2020-07-08 12:55 | Outpatient (CLI) | payer OTHER, SELFPAY ==
[2020-07-08 14:17] LABS: Basophils % 0.8 %; Eosinophils # 0.2 10^3/uL (0.0-0.8); Eosinophils % 7.8 %; Hematocrit 35.6 % (42.0-52.0); Hemoglobin 12.6 g/dL (11.7-16.6); Lymphocytes # 0.8 10^3/uL (0.8-4.8); Lymphocytes % 30.1 %; Mean Corpuscular HGB Conc 35.4 g/dL (30.0-36.0); Mean Corpuscular Hemoglobin 35.4 pg (28.0-34.0); Mean Platelet Volume 12.1 fL (7.4-10.4); Monocytes # 0.3 10^3/uL (0.2-0.9); Monocytes % 10.5 %; Neutrophils # 1.29 10^3/uL (1.8-7.7); Neutrophils % 50.4 %; Nucleated Red Blood Cells % 0 %; Platelet Count 55 10^3/cmm (130-400); Red Blood Count 3.56 10^6/uL (4.1-5.3); White Blood Count 2.6 10^3/uL (4.0-10.0)
== END 2020-07-08 12:56 | disposition home or self-care (01) ==
LOC: ONCMED 13:00
PROVIDERS: PCP Internal Medicine; Visit Provider Internal Medicine Medical Oncology
DX: E83.119 Hemochromatosis, unspecified (principal)
CPT/HCPCS: 36415; 85025; 99195

== ENCOUNTER 2020-07-23 05:58 | Outpatient (CLI) | payer OTHER, SELFPAY ==
[2020-07-23 14:06] LABS: Basophils % 0.3 %; Eosinophils # 0.2 10^3/uL (0.0-0.8); Eosinophils % 5.9 %; Hematocrit 33.8 % (42.0-52.0); Hemoglobin 12.1 g/dL (11.7-16.6); Lymphocytes # 0.9 10^3/uL (0.8-4.8); Lymphocytes % 29.8 %; Mean Corpuscular HGB Conc 35.8 g/dL (30.0-36.0); Mean Corpuscular Hemoglobin 34.8 pg (28.0-34.0); Mean Corpuscular Volume 97.1 fL (80-94); Mean Platelet Volume 11.5 fL (7.4-10.4); Monocytes # 0.3 10^3/uL (0.2-0.9); Monocytes % 10.4 %; Neutrophils # 1.55 10^3/uL (1.8-7.7); Neutrophils % 53.6 %; Nucleated Red Blood Cells % 0 %; Platelet Count 59 10^3/cmm (130-400); Red Blood Count 3.48 10^6/uL (4.1-5.3); Red Cell Distribution Width 13.9 % (12.1-15.1); White Blood Count 2.9 10^3/uL (4.0-10.0)
[2020-07-23 14:34] LABS: Ferritin 68 ng/mL (30-400)
[2020-07-23 16:40] LABS: Tumor Marker Alpha Fetoprotein 7.4 ng/mL (0-8.3)
--- NOTE | 2020-08-03 23:20 | ONC FU_ITS ---
[facility] Patient Note Patient: Kris Horn Unit #: [id number]: 1960 Dictated By: Shanda AlbertDate of Visit: Jul 23, 2020 Onc MED Follow-Up/Prog Note Chief Complaint: Iron overload History of Present Illness: Mr. Horn is a 60-year-old gentleman with history of elevated ferritin for long time. He was seen in [facility] hematology clinic by Dr. Brian and workup was done for hemochromatosis. As per patient, at that time his ferritin was high but it was not confirmed whether he has hemochromatosis as expected gene mutation was not observed. But his sister has same problem and she underwent genetic evaluation and it was confirmed that she has hemochromatosis and now being managed by her research executive with phlebotomies. Mr Horn reports that several years ago he was diagnosed with esophageal varices. He was referred to [facility] in [place] where he underwent procedure to treat his esophageal varices as he was bleeding profusely from there. He was treated with medicines to control his portal hypertension. At the same time he had MRI scan of the liver, which confirmed cirrhosis due to alcohol abuse. He states he quit drinking at that time and follow-up MRI scan of liver did show some improvement. And along with the liver cirrhosis he was also found to have splenomegaly which was causing thrombocytopenia and lleukopenia Mr Horn developed severe pain in his feet and he was diagnosed with plantar fasciitis. As a part of workup his primary care physician checked his iron studies and it showed an elevated ferritin level. Due to history of iron abnormality, he was referred to Dr Deluca to rule out hemochromatosis / iron overload. He is now being treated with phlebotomy to keep ferritin less than 100 Patient has type II diabetes mellitus which is being managed by oral hypoglycemic agents. He also has hepatic cirrhosis due to alcohol abuse but he quit drinking about 8 years. MRI scan of the liver done at [place] on January 12, 2020 showed cirrhotic liver with multiple cirrhotic nodules with evidence of portal hypertension including splenomegaly and multiple upper abdominal varices. No suspicious hepatic lesion seen. 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 Mr Horn is here today for followup. He has been receiving 500 mL his last vitamin was on 08/08/2020. Phlebotomies every [address] Deluca's orders. His last phlebotomy was on 07/08/2020. He continues to be borderline neutropenic and is thrombocytopenic with platelet counts running in the 50,000-60,000 range. Thus far he has been asymptomatic. He denies any fever or chills. He states he is actually not been sick at all over the last year. He states that he usually has an upper respiratory infection as he uses wood heat a lot and is around it with his neighbors but has not had any infections at all this year. He is doing well overall. He denies any shortness of breath orthopnea. He has fatigue but states that is chronic. Has been able to get up and work in his yard some although he rest off and on. He states that he does recover well with rest. He denies any chest pain or palpitations. He has had no nausea or vomiting. He denies any neuropathy. He has no new concerns today. His ECOG is 1. Past Medical History: Cirrhosis of liver Diverticulitis Esophageal varices IBS Portal vein thrombosis Type II diabetes Venous insufficiency Gi bleed in 2009 Past Surgical History: Cholecystectomy Covid vaccine #2 in 2020 Covid vaccine #1 in 2020 Colonoscopy in 2016 Upper endoscopy completed 11/24/2011-grade II esophageal varices. Banded and completely irradiated. Mild portal hypertensive gastropathy. Prepyloric erythema. Allergies: No Known Allergies. Medications: Gabapentin 1 Capsule (of 300 mg) Oral t.i.d. MetFORMIN HCl 1 (1000 mg) Tablet Oral b.i.d. Nadolol 1 (20 mg) Tablet Oral daily Spironolactone 1 (50 mg) Tablet Oral daily Family History: Mr. Horn's mother at age 78: congestive heart failure. Mr. Horn's father is alive: coronary artery disease, and type II diabetes. Mr. Horn has 1 brother who is alive. He has 1 sister who is alive. Social History: Mr. Horn is and he is an unemloyed. Mr. Horn no longer smokes. He has no history of drinking. He has indicated exposure to the following products: chewing tobacco. Mr. Horn reports the following support systems: lives with spouse, significant other, family, or friends, lives in own house, supportive family/friends willing to assist with needs, and adequate transportation available for expected visits. His diet consists of regular meals. He indicates his activity level as: daily activities. Pt states that he chews tobacco. Review Of Symptoms: see above Vital Signs: Performed on Jul 23, 2020 15:17 Height - 73.00 in Weight - 245.8 lbs (LOW) BSA - 2.35 sq.m BMI - 32.43 (HIGH) Temperature - 97.8 F (LOW) Pulse - 65 /min Respiration - 18 /min BP - 103/69 mm(hg) O2 Sat - 98 % Pain - 3 Fatigue - 0,0 - Fully active, able to carry on all predisease activities without restrictions. (ECOG) Physical Examination: Constitutional Alert, oriented, no acute distress. Skin pink, warm and dry. Head Normocephalic; atraumatic. Eyes Conjunctivae and sclerae are clear and without icterus. Pupils are reactive and equal. Neck Supple without masses or thyromegaly. No jugular venous distension. Hematologic/Lymphatic No petechiae or purpura. No tender or palpable lymph nodes in the cervical or supraclavicular areas. Respiratory Lungs are clear to auscultation without rhonchi or wheezing. Cardiovascular Regular rate and rhythm of heart without murmurs,clicks, gallops or rubs. Abdomen Non-tender, non-distended, no masses or ascites. Good bowel sounds noted in all quads. No guarding or rebound tenderness. No pulsatile masses. Back/Spine Non-tender to palpation. Musculoskeletal No tenderness or swelling, normal range of motion without obvious weakness. Integumentary No rashes or lesions. Neurologic No sensory or motor deficits, normal cerebellar function, normal gait. Psychiatric Alert and oriented times three. Coherent speech. Verbalizes understanding of our discussions today. Laboratory:Test performed on Jul 23, 2020 13:44 Ferritin 68 ng/mL WBC 2.9 10 3/uL RBC 3.48 10 6/uL HGB 12.1 g/dL HCT 33.8 % MCV 97.1 fL MCH 34.8 pg MCHC 35.8 g/dL RDW 13.9 % Platelet Count 59 10 3/cmm MPV 11.5 fL Neutrophils 1.55 10 3/uL Lymphocytes 0.9 10 3/uL Monocytes 0.3 10 3/uL Eosinophils 0.2 10 3/uL Basophils 0.0 10 3/uL Neutrophil % 53.6 % Lymphocyte % 29.8 % Monocyte % 10.4 % Eosinophil % 5.9 % Basophils % 0.3 % NRBC % 0 % AFP 7.4 ng/mL Impression: Elevated ferritin level with macrocytosis, questionable etiology Positive for rare HFE H63D homozygous mutation Ferritin level of 746 ng per mL normal being 30-400. Checked on 03/09/[address] Brian about 10 years ago, for hemochromatosis was inconclusive Hemochromatosis profile done on 04/22/2017 showed negative for C282Y mutation, negative for as S 65C mutation, homozygous H63D mutation ( Moderate risk for iron overload) Repeat ferritin was 520.6 normal being less than 388. 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 Plan: PROBLEMS ADDRESSED TODAY A. Elevated ferritin level currently undergoing phlebotomy 500 mL every 2 weeks. His last colotomy was July 08, 2020. 1. Today's labs reviewed in detail discussed with Mr. Horn and a copy was given to him. WBC 2.9, hemoglobin 12.1, hematocrit 33.8, platelets 59,000 and ANC is 1550. His ferritin level today is 68. 2. We will forego phlebotomy today as his last phlebotomy was on July 08, 2020 and his ferritin level is currently at 68. B. Thrombocytopenia and neutropenia (due to splenomegaly) 1. Mr. Horn has been advised against neutropenic precautions as well as bleeding precautions due to thrombocytopenia platelet count of 59,000. 2. He has had no problems thus far and states he is feeling good. C. Follow-up plan 1. Blood plan to recheck a CBC and ferritin level in 1 month and then again at 2 months. 2. We will plan for follow-up with CBC CMP ferritin and alpha protein in 3 months. 3. Mr. Horn has been instructed to contact us in interim should questions or problems arise. Signed By: Shanda Albert-, AOCNP Reanna Deluca MD <<Signature on File>>
== END 2020-07-23 05:59 | disposition home or self-care (01) ==
PROVIDERS: PCP Internal Medicine; Visit Provider Nurse Practitioner
DX: E83.110 Hereditary hemochromatosis (principal); D69.6 Thrombocytopenia, unspecified; K76.0 Fatty (change of) liver, not elsewhere classified; K57.92 Diverticulitis of intestine, part unspecified, without perforation or abscess without bleeding; I85.00 Esophageal varices without bleeding; K58.9 Irritable bowel syndrome, unspecified; I81 Portal vein thrombosis; E11.9 Type 2 diabetes mellitus without complications; I87.2 Venous insufficiency (chronic) (peripheral); Z79.899 Other long term (current) drug therapy
CPT/HCPCS: 36415; 82105; 82728; 85025; 99214

== ENCOUNTER 2020-10-02 12:00 | Outpatient (CLI) | payer OTHER, SELFPAY ==
[2020-10-02 12:56] LABS: Basophils % 1.3 %; Eosinophils # 0.1 10^3/uL (0.0-0.8); Eosinophils % 5.4 %; Hematocrit 36.3 % (42.0-52.0); Lymphocytes # 0.7 10^3/uL (0.8-4.8); Mean Corpuscular HGB Conc 35.8 g/dL (30.0-36.0); Mean Corpuscular Volume 97.8 fL (80-94); Mean Platelet Volume 11.8 fL (7.4-10.4); Monocytes # 0.2 10^3/uL (0.2-0.9); Neutrophils # 1.28 10^3/uL (1.8-7.7); Neutrophils % 53.3 %; Nucleated Red Blood Cells % 0 %; Platelet Count 42 10^3/cmm (130-400); Red Blood Count 3.71 10^6/uL (4.1-5.3); Red Cell Distribution Width 14.1 % (12.1-15.1); White Blood Count 2.4 10^3/uL (4.0-10.0)
[2020-10-02 14:16] LABS: Alanine Aminotransferase 15 U/L (0-41); Albumin Level 3.1 g/dL (3.5-5.2); Alkaline Phosphatase 93 IU/L (40-130); Anion Gap 13.1 (5-19); Aspartate Amino Transferase 31 U/L (0-40); Blood Urea Nitrogen 8 mg/dL (6-20); Calcium 7.6 mg/dL (8.5-10.5); Carbon Dioxide 25 mmol/L (22-29); Chloride 99 mmol/L (98-107); Ferritin 100 ng/mL (30-400); Globulin 2.6 g/dL (1.3-4.6); Glomerular Filtration Rate 170.2 mL/min (90-130); Glucose 314 mg/dL (65-115); Iron 101 ug/dL (59-158); Osmolality Calculated 286 mOsm/kg (285-295); Percent Saturation 46.5 % (20-50); Potassium 4.1 mmol/L (3.5-5.1); Sodium 133 mmol/L (136-145); Total Bilirubin 2.1 mg/dL (0.15-1.2); Total Iron Binding Capacity 217 mcg/dl; Total Protein 5.7 g/dL (6.6-8.7); Unsaturated Iron Binding 116 ug/dL (112-347)
[2020-10-02 15:05] LABS: Tumor Marker Alpha Fetoprotein 6.2 ng/mL (0-8.3)
--- NOTE | 2020-10-02 17:13 | ONC FU_ITS ---
Dr. Deluca follow up note Patient: Kris Horn Unit #: [id number]: [id number] Dicatated By: Reanna Deluca M.D.Date of Visit:Oct 02, 2020 Onc Med Follow-up/Prog Note History of Present Illness: Mr. Horn is a 60-year-old gentleman with history of elevated ferritin for long time. He was seen in [facility] hematology clinic by Dr. Brian and workup was done for hemochromatosis. As per patient, at that time his ferritin was high but it was not confirmed whether he has hemochromatosis as expected gene mutation was not observed. But his sister has same problem and she underwent genetic evaluation and it was confirmed that she has hemochromatosis and now being managed by her cheese maker with phlebotomies. Mr Horn reports that several years ago he was diagnosed with esophageal varices. He was referred to [facility] in [place] where he underwent procedure to treat his esophageal varices as he was bleeding profusely from there. He was treated with medicines to control his portal hypertension. At the same time he had MRI scan of the liver, which confirmed cirrhosis due to alcohol abuse. He states he quit drinking at that time and follow-up MRI scan of liver did show some improvement. And along with the liver cirrhosis he was also found to have splenomegaly which was causing thrombocytopenia and lleukopenia Mr Horn developed severe pain in his feet and he was diagnosed with plantar fasciitis. As a part of workup his primary care physician checked his iron studies and it showed an elevated ferritin level. Due to history of iron abnormality, he was referred to Dr Deluca to rule out hemochromatosis / iron overload. He is now being treated with phlebotomy to keep ferritin less than 100 Patient has type II diabetes mellitus which is being managed by oral hypoglycemic agents. He also has hepatic cirrhosis due to alcohol abuse but he quit drinking about 8 years. MRI scan of the liver done at [place] on January 12, 2020 showed cirrhotic liver with multiple cirrhotic nodules with evidence of portal hypertension including splenomegaly and multiple upper abdominal varices. No suspicious hepatic lesion seen. 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 Came for follow-up, denies any specific complaints, no fever chills, no nausea or vomiting, no diarrhea or constipation, no nosebleed or gum bleed, no melena or hematochezia, no hemoptysis or hematemesis, no petechia or ecchymosis Medications: Gabapentin 1 Capsule (of 300 mg) Oral t.i.d., MetFORMIN HCl 1 (1000 mg) Tablet Oral b.i.d., Nadolol 1 (20 mg) Tablet Oral daily, Spironolactone 1 (50 mg) Tablet Oral daily Allergies: No Known Allergies. Review of Systems: Review of Systems is not available for this patient. Vital Signs: Performed on Oct 02, 2020 15:37 Height - 73.00 in Weight - 246.4 lbs (HIGH) BSA - 2.35 sq.m BMI - 32.51 (HIGH) Temperature - 98.1 F (LOW) Pulse - 88 /min Respiration - 18 /min BP - 119/77 mm(hg) O2 Sat - 97 % Pain - 0 Fatigue - 0 Performance Status: 0 - Fully active, able to carry on all predisease activities without restrictions. (ECOG) Physical Examination: ENMT - No mouth sores, no thrush, no jaundice, Respiratory - Lungs are clear to auscultation, Cardiovascular - Regular rate and rhythm of heart, Abdomen - Soft, bowel sounds present, Extremities - No visible edema. Lab/Imaging: Test performed on Jul 23, 2020 13:44 Ferritin 68 ng/mL WBC 2.9 10 3/uL RBC 3.48 10 6/uL HGB 12.1 g/dL HCT 33.8 % MCV 97.1 fL MCH 34.8 pg MCHC 35.8 g/dL RDW 13.9 % Platelet Count 59 10 3/cmm MPV 11.5 fL Neutrophils 1.55 10 3/uL Lymphocytes 0.9 10 3/uL Monocytes 0.3 10 3/uL Eosinophils 0.2 10 3/uL Basophils 0.0 10 3/uL Neutrophil % 53.6 % Lymphocyte % 29.8 % Monocyte % 10.4 % Eosinophil % 5.9 % Basophils % 0.3 % NRBC % 0 % AFP 7.4 ng/mL Impression: Elevated ferritin level with macrocytosis, questionable etiology Positive for rare HFE H63D homozygous mutation Ferritin level of 746 ng per mL normal being 30-400. Checked on 03/09/[address] Brian about 10 years ago, for hemochromatosis was inconclusive Hemochromatosis profile done on 04/22/2017 showed negative for C282Y mutation, negative for as S 65C mutation, homozygous H63D mutation ( Moderate risk for iron overload) Repeat ferritin was 520.6 normal being less than 388. 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 Plan: Discussed with patient regarding his labs white blood count 2.6 hemoglobin 13 hematocrit 36.3 platelets 42,000 compared to 59,000 previously ANC 1280 ferritin 100 Clinically, patient doing well with no new signs symptom, his follow-up labs shows hemoglobin normal range but persistent/mildly progressive thrombocytopenia and leukopenia due to splenic sequestration As far as hemochromatosis concerned, his ferritin is around 100 and goal is to keep it between 60-100 and is transferrin saturation is below 50% and goal is to keep it below 50%. So patient return to clinic in 1 month with CBC and iron studies, as long as his transferrin saturation stayed below 50% and ferritin stay below 100 we will continue to monitor. Signed By: Reanna Deluca M.D. <<Signature on File>>
== END 2020-10-02 12:01 | disposition home or self-care (01) ==
LOC: ONCMED 12:04
PROVIDERS: PCP Internal Medicine; Visit Provider Nurse Practitioner
DX: D75.89 Other specified diseases of blood and blood-forming organs (principal); E83.110 Hereditary hemochromatosis; M72.2 Plantar fascial fibromatosis; K57.92 Diverticulitis of intestine, part unspecified, without perforation or abscess without bleeding; K76.0 Fatty (change of) liver, not elsewhere classified; K74.60 Unspecified cirrhosis of liver; K76.6 Portal hypertension; R16.1 Splenomegaly, not elsewhere classified; D69.6 Thrombocytopenia, unspecified; Z79.899 Other long term (current) drug therapy
CPT/HCPCS: 36415; 80053; 82105; 82728; 83540; 83550; 85025; 99214

== ENCOUNTER 2020-11-04 11:24 | Outpatient (CLI) | payer OTHER, SELFPAY ==
[2020-11-04 11:57] LABS: Eosinophils # 0.2 10^3/uL (0.0-0.8); Eosinophils % 8.2 %; Hematocrit 33.7 % (42.0-52.0); Hemoglobin 12.3 g/dL (11.7-16.6); Lymphocytes # 0.7 10^3/uL (0.8-4.8); Lymphocytes % 31.3 %; Mean Corpuscular HGB Conc 36.5 g/dL (30.0-36.0); Mean Corpuscular Hemoglobin 36.5 pg (28.0-34.0); Mean Platelet Volume 11.6 fL (7.4-10.4); Monocytes # 0.2 10^3/uL (0.2-0.9); Monocytes % 9.1 %; Neutrophils # 1.05 10^3/uL (1.8-7.7); Neutrophils % 50.4 %; Nucleated Red Blood Cells % 0 %; Platelet Count 46 10^3/cmm (130-400); Red Blood Count 3.37 10^6/uL (4.1-5.3); Red Cell Distribution Width 15.3 % (12.1-15.1); White Blood Count 2.1 10^3/uL (4.0-10.0)
[2020-11-04 12:13] LABS: Ferritin 157 ng/mL (30-400); Iron 185 ug/dL (59-158); Percent Saturation 90.2 % (20-50); Total Iron Binding Capacity 205 mcg/dl; Unsaturated Iron Binding 20 ug/dL (112-347)
--- NOTE | 2020-11-04 17:23 | ONC FU_ITS ---
Dr. Deluca follow up note Patient: Kris Horn Unit #: [id number]: 1960 Dicatated By: Reanna Deluca M.D.Date of Visit:Nov 04, 2020 Onc Med Follow-up/Prog Note History of Present Illness: Mr. Horn is a 60-year-old gentleman with history of elevated ferritin for long time. He was seen in [facility] [place] by Dr. Brian and workup was done for hemochromatosis. As per patient, at that time his ferritin was high but it was not confirmed whether he has hemochromatosis as expected gene mutation was not observed. But his sister has same problem and she underwent genetic evaluation and it was confirmed that she has hemochromatosis and now being managed by her student driving instructor with phlebotomies. Mr Horn reports that several years ago he was diagnosed with esophageal varices. He was referred to [facility] in [place] where he underwent procedure to treat his esophageal varices as he was bleeding profusely from there. He was treated with medicines to control his portal hypertension. At the same time he had MRI scan of the liver, which confirmed cirrhosis due to alcohol abuse. He states he quit drinking at that time and follow-up MRI scan of liver did show some improvement. And along with the liver cirrhosis he was also found to have splenomegaly which was causing thrombocytopenia and lleukopenia Mr Horn developed severe pain in his feet and he was diagnosed with plantar fasciitis. As a part of workup his primary care physician checked his iron studies and it showed an elevated ferritin level. Due to history of iron abnormality, he was referred to Dr Deluca to rule out hemochromatosis / iron overload. He is now being treated with phlebotomy to keep ferritin less than 100 Patient has type II diabetes mellitus which is being managed by oral hypoglycemic agents. He also has hepatic cirrhosis due to alcohol abuse but he quit drinking about 8 years. MRI scan of the liver done at [place] on January 12, 2020 showed cirrhotic liver with multiple cirrhotic nodules with evidence of portal hypertension including splenomegaly and multiple upper abdominal varices. No suspicious hepatic lesion seen. 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 Came for follow-up, denies any specific complaint, no fever chills, no nausea or vomiting, no diarrhea constipation, no abdominal pain, no nosebleed or gum bleed, no melena or hematochezia, no dysuria or hematuria, no ecchymosis or petechiae Medications: Gabapentin 1 Capsule (of 300 mg) Oral t.i.d., MetFORMIN HCl 1 (1000 mg) Tablet Oral b.i.d., Nadolol 1 (20 mg) Tablet Oral daily, Spironolactone 1 (50 mg) Tablet Oral daily Allergies: No Known Allergies. Review of Systems: Review of Systems is not available for this patient. Vital Signs: Performed on Nov 04, 2020 14:42 Height - 73.00 in Weight - 244.4 lbs (LOW) BSA - 2.34 sq.m BMI - 32.24 (HIGH) Temperature - 97.1 F (LOW) Pulse - 65 /min Respiration - 18 /min BP - 121/82 mm(hg) O2 Sat - 98 % Pain - 5 Fatigue - 0 Performance Status: 0 - Fully active, able to carry on all predisease activities without restrictions. (ECOG) Physical Examination: ENMT - No mouth sores, no thrush, no jaundice, Respiratory - Lungs are clear to auscultation, Cardiovascular - Regular rate and rhythm of heart, Abdomen - Soft, bowel sounds present, Extremities - No visible edema. Lab/Imaging: Test performed on Jul 23, 2020 13:44 Ferritin 68 ng/mL WBC 2.9 10 3/uL RBC 3.48 10 6/uL HGB 12.1 g/dL HCT 33.8 % MCV 97.1 fL MCH 34.8 pg MCHC 35.8 g/dL RDW 13.9 % Platelet Count 59 10 3/cmm MPV 11.5 fL Neutrophils 1.55 10 3/uL Lymphocytes 0.9 10 3/uL Monocytes 0.3 10 3/uL Eosinophils 0.2 10 3/uL Basophils 0.0 10 3/uL Neutrophil % 53.6 % Lymphocyte % 29.8 % Monocyte % 10.4 % Eosinophil % 5.9 % Basophils % 0.3 % NRBC % 0 % AFP 7.4 ng/mL Impression: Elevated ferritin level with macrocytosis, questionable etiology Positive for rare HFE H63D homozygous mutation Ferritin level of 746 ng per mL normal being 30-400. Checked on 03/09/[address] Brian about 10 years ago, for hemochromatosis was inconclusive Hemochromatosis profile done on 04/22/2017 showed negative for C282Y mutation, negative for as S 65C mutation, homozygous H63D mutation ( Moderate risk for iron overload) Repeat ferritin was 520.6 normal being less than 388. 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 Plan: Discussed with patient regarding his labs white blood count 2.1 hemoglobin 12.3 hematocrit 33.7 platelets 46,000 compared to 42,000 previously iron studies shows ferritin 157 compared to 100 on October 02, 2020 iron saturation 90.2% compared to 46.5% previously iron 185 Clinically, patient doing reasonably well denies any new symptoms his follow-up labs shows persistent bicytopenia but stable, as for hemochromatosis concerned his ferritin has gone up along with iron saturation iron, will consider phlebotomy every 2 weeks and then repeat his ferritin in 1 month and goal is to keep it less than 100 Signed By: Reanna Deluca M.D. <<Signature on File>>
== END 2020-11-04 11:25 | disposition home or self-care (01) ==
LOC: ONCMED 11:27
PROVIDERS: PCP Internal Medicine; Visit Provider Internal Medicine Hematology & Oncology
DX: R79.89 Other specified abnormal findings of blood chemistry (principal); E83.119 Hemochromatosis, unspecified; M72.2 Plantar fascial fibromatosis; E11.9 Type 2 diabetes mellitus without complications; K57.92 Diverticulitis of intestine, part unspecified, without perforation or abscess without bleeding; K70.30 Alcoholic cirrhosis of liver without ascites; D73.81 Neutropenic splenomegaly; F10.21 Alcohol dependence, in remission
CPT/HCPCS: 36415; 82728; 83540; 83550; 85025; 99195; 99214

== ENCOUNTER 2020-11-21 08:09 | Outpatient (CLI) | payer OTHER, SELFPAY ==
[2020-11-21 09:02] LABS: Eosinophils # 0.2 10^3/uL (0.0-0.8); Eosinophils % 6.4 %; Hematocrit 34.5 % (42.0-52.0); Hemoglobin 12.4 g/dL (11.7-16.6); Lymphocytes % 34.6 %; Mean Corpuscular HGB Conc 35.9 g/dL (30.0-36.0); Mean Corpuscular Hemoglobin 36.5 pg (28.0-34.0); Mean Corpuscular Volume 101.5 fL (80-94); Mean Platelet Volume 11.3 fL (7.4-10.4); Monocytes # 0.3 10^3/uL (0.2-0.9); Monocytes % 9.4 %; Neutrophils # 1.45 10^3/uL (1.8-7.7); Neutrophils % 48.6 %; Nucleated Red Blood Cells % 0 %; Platelet Count 52 10^3/cmm (130-400); Red Cell Distribution Width 14.1 % (12.1-15.1)
[2020-11-21 10:47] LABS: Ferritin 103 ng/mL (30-400)
== END 2020-11-21 08:10 | disposition home or self-care (01) ==
LOC: ONCMED 08:09
PROVIDERS: PCP Internal Medicine; Visit Provider Internal Medicine Hematology & Oncology
DX: D75.89 Other specified diseases of blood and blood-forming organs (principal)
CPT/HCPCS: 36415; 82728; 85025; 99195

== ENCOUNTER 2020-12-09 14:12 | Outpatient (CLI) | payer OTHER, SELFPAY ==
[2020-12-09 15:07] LABS: Basophils % 0.7 %; Eosinophils # 0.1 10^3/uL (0.0-0.8); Eosinophils % 4.4 %; Hematocrit 34.9 % (42.0-52.0); Hemoglobin 12.6 g/dL (11.7-16.6); Lymphocytes # 0.6 10^3/uL (0.8-4.8); Lymphocytes % 21.7 %; Mean Corpuscular HGB Conc 36.1 g/dL (30.0-36.0); Mean Corpuscular Volume 99.7 fl (80-94); Mean Platelet Volume 11.5 fL (7.4-10.4); Monocytes # 0.3 10^3/uL (0.2-0.9); Monocytes % 9.5 %; Neutrophils # 1.88 10^3/uL (1.8-7.7); Neutrophils % 63.7 %; Nucleated Red Blood Cells % 0 %; Platelet Count 51 10^3/cmm (130-400); Red Cell Distribution Width 13.6 % (12.1-15.1)
[2020-12-09 15:43] LABS: Ferritin 120 ng/mL (30-400)
--- NOTE | 2020-12-09 16:34 | ONC FU_ITS ---
Dr. Deluca follow up note Patient: Kris Horn Unit #: [id number]: 1960 Dicatated By: Reanna Deluca M.D.Date of Visit:Dec 09, 2020 Onc Med Follow-up/Prog Note History of Present Illness: Mr. Horn is a 60-year-old gentleman with history of elevated ferritin for long time. He was [place] [facility] [place] by [place]. Brian and workup was done for hemochromatosis. As per patient, at that time his ferritin was high but it was not confirmed whether he has hemochromatosis as expected gene mutation was not observed. But his sister has same problem and she underwent genetic evaluation and it was confirmed that she has hemochromatosis and now being managed by her developer programmer analyst with phlebotomies. Mr Horn reports that several years ago he was diagnosed with esophageal varices. He was referred to [facility] in [place] where he underwent procedure to treat his esophageal varices as he was bleeding profusely from there. He was treated with medicines to control his portal hypertension. At the same time he had MRI scan of the liver, which confirmed cirrhosis due to alcohol abuse. He states he quit drinking at that time and follow-up MRI scan of liver did show some improvement. And along with the liver cirrhosis he was also found to have splenomegaly which was causing thrombocytopenia and lleukopenia Mr Horn developed severe pain in his feet and he was diagnosed with plantar fasciitis. As a part of workup his primary care physician checked his iron studies and it showed an elevated ferritin level. Due to history of iron abnormality, he was referred to Dr Deluca to rule out hemochromatosis / iron overload. He is now being treated with phlebotomy to keep ferritin less than 100 Patient has type II diabetes mellitus which is being managed by oral hypoglycemic agents. He also has hepatic cirrhosis due to alcohol abuse but he quit drinking about 8 years. MRI scan of the liver done at [place] on January 12, 2020 showed cirrhotic liver with multiple cirrhotic nodules with evidence of portal hypertension including splenomegaly and multiple upper abdominal varices. No suspicious hepatic lesion seen. 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 Came for follow-up, denies any specific complaint except weakness for day or 2 after phlebotomy otherwise no fever chills, no nausea or vomiting, no diarrhea or constipation, no headaches or blurred vision or double vision, no jaundice, no abdominal pain, tolerating phlebotomy on as-needed basis well Medications: Gabapentin 1 Capsule (of 300 mg) Oral t.i.d., MetFORMIN HCl 1 (1000 mg) Tablet Oral b.i.d., Nadolol 1 (20 mg) Tablet Oral daily, Spironolactone 1 (50 mg) Tablet Oral daily Allergies: No Known Allergies. Review of Systems: Review of Systems is not available for this patient. Vital Signs: Performed on Dec 09, 2020 15:48 Height - 73.00 in Weight - 240 lbs (LOW) BSA - 2.33 sq.m BMI - 31.66 (HIGH) Temperature - 97.2 F (LOW) Pulse - 73 /min Respiration - 18 /min BP - 120/80 mm(hg) O2 Sat - 98 % Pain - 2 Fatigue - 4 Performance Status: 0 - Fully active, able to carry on all predisease activities without restrictions. (ECOG) Physical Examination: ENMT - No mouth sores, no thrush, no jaundice, Respiratory - Lungs are clear to auscultation, Cardiovascular - Regular rate and rhythm of heart, Abdomen - Soft, bowel sounds present, Extremities - No visible edema. Lab/Imaging: Test performed on Jul 23, 2020 13:44 Ferritin 68 ng/mL WBC 2.9 10 3/uL RBC 3.48 10 6/uL HGB 12.1 g/dL HCT 33.8 % MCV 97.1 fL MCH 34.8 pg MCHC 35.8 g/dL RDW 13.9 % Platelet Count 59 10 3/cmm MPV 11.5 fL Neutrophils 1.55 10 3/uL Lymphocytes 0.9 10 3/uL Monocytes 0.3 10 3/uL Eosinophils 0.2 10 3/uL Basophils 0.0 10 3/uL Neutrophil % 53.6 % Lymphocyte % 29.8 % Monocyte % 10.4 % Eosinophil % 5.9 % Basophils % 0.3 % NRBC % 0 % AFP 7.4 ng/mL Impression: Elevated ferritin level with macrocytosis, questionable etiology Positive for rare HFE H63D homozygous mutation Ferritin level of 746 ng per mL normal being 30-400. Checked on 03/09/[address] Brian about 10 years ago, for hemochromatosis was inconclusive Hemochromatosis profile done on 04/22/2017 showed negative for C282Y mutation, negative for as S 65C mutation, homozygous H63D mutation ( Moderate risk for iron overload) Repeat ferritin was 520.6 normal being less than 388. 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 Plan: Discussed with patient regarding his labs white blood count 3 hemoglobin 12.6 hematocrit 34.9 platelets 51,000 ferritin 120 compared to 103 previously Clinically, patient is doing reasonably well, his CBC is stable with persistent bicytopenia e.g. 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 and his ferritin is 120 compared to 103 previously, at this point we will consider phlebotomy with 250 cc blood drawn with 250 cc normal saline replacement to minimize symptoms and the goal is to keep ferritin below 100 or transferrin saturation below 50,, Patient was advised to avoid iron rich foods , He was also offered evaluation for clinical trial for hemochromatosis/iron overload at a tertiary care center but patient declined, he will return to clinic in 1 month with CBC ferritin, iron and TIBC, patient said lab work-up done at hospital is very expensive so he wants to try at health department, he was given prescription for lab work-up Signed By: Reanna Deluca M.D. <<Signature on File>>
== END 2020-12-09 14:13 | disposition home or self-care (01) ==
PROVIDERS: PCP Internal Medicine; Visit Provider Internal Medicine Hematology & Oncology
DX: R16.1 Splenomegaly, not elsewhere classified (principal); K74.60 Unspecified cirrhosis of liver; Z83.2 Family history of diseases of the blood and blood-forming organs and certain disorders involving the immune mechanism; Z79.899 Other long term (current) drug therapy; Z79.84 Long term (current) use of oral hypoglycemic drugs
CPT/HCPCS: 82728; 85025; 99195; 99214

== ENCOUNTER 2021-01-13 13:06 | Outpatient (CLI) | payer OTHER, SELFPAY ==
--- NOTE | 2021-01-13 17:34 | ONC FU_ITS ---
Dr. Deluca follow up note Patient: Kris Horn Unit #: [id number]: 1960 Dicatated By: Reanna Deluca M.D.Date of Visit:Jan 13, 2021 Onc Med Follow-up/Prog Note History of Present Illness: Mr. Horn is a 60-year-old gentleman with history of elevated ferritin for long time. He was seen in [facility] hematology clinic by Dr. Brian and workup was done for hemochromatosis. As per patient, at that time his ferritin was high but it was not confirmed whether he has hemochromatosis as expected gene mutation was not observed. But his sister has same problem and she underwent genetic evaluation and it was confirmed that she has hemochromatosis and now being managed by her fitness attendant with phlebotomies. Mr Horn reports that several years ago he was diagnosed with esophageal varices. He was referred to [facility] in [place] where he underwent procedure to treat his esophageal varices as he was bleeding profusely from there. He was treated with medicines to control his portal hypertension. At the same time he had MRI scan of the liver, which confirmed cirrhosis due to alcohol abuse. He states he quit drinking at that time and follow-up MRI scan of liver did show some improvement. And along with the liver cirrhosis he was also found to have splenomegaly which was causing thrombocytopenia and lleukopenia Mr Horn developed severe pain in his feet and he was diagnosed with plantar fasciitis. As a part of workup his primary care physician checked his iron studies and it showed an elevated ferritin level. Due to history of iron abnormality, he was referred to Dr Deluca to rule out hemochromatosis / iron overload. He is now being treated with phlebotomy to keep ferritin less than 100 Patient has type II diabetes mellitus which is being managed by oral hypoglycemic agents. He also has hepatic cirrhosis due to alcohol abuse but he quit drinking about 8 years. MRI scan of the liver done at [place] on January 12, 2020 showed cirrhotic liver with multiple cirrhotic nodules with evidence of portal hypertension including splenomegaly and multiple upper abdominal varices. No suspicious hepatic lesion seen. 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 Came for follow-up, denies any specific complaints, no fever chills, no nausea or vomiting, no diarrhea constipation, no hemoptysis or hematemesis, no jaundice, patient said he is watching his diet avoiding any iron rich foods and has lost some weight Medications: Gabapentin 1 Capsule (of 300 mg) Oral t.i.d., MetFORMIN HCl 1 (1000 mg) Tablet Oral b.i.d., Nadolol 1 (20 mg) Tablet Oral daily, Spironolactone 1 (50 mg) Tablet Oral daily Allergies: No Known Allergies. Review of Systems: Review of Systems is not available for this patient. Vital Signs: Performed on Jan 13, 2021 17:24 Height - 73.00 in Weight - 239.6 lbs (LOW) BSA - 2.32 sq.m BMI - 31.61 (HIGH) Temperature - 97.6 F (LOW) Pulse - 65 /min Respiration - 18 /min BP - 128/84 mm(hg) O2 Sat - 98 % Pain - 0 Fatigue - 0 Performance Status: 0 - Fully active, able to carry on all predisease activities without restrictions. (ECOG) Physical Examination: ENMT - No mouth sores, no thrush, no jaundice, Respiratory - Lungs are clear to auscultation, Cardiovascular - Regular rate and rhythm of heart, Abdomen - Soft, bowel sounds present, Extremities - No visible edema. Lab/Imaging: Test performed on Jan 06, 2021 14:34 Ferritin 47 ng/mL Test performed on Jan 05, 2021 13:43 % Iron Saturation 41 % Iron, Total 114 mcg/dL TIBC 275 mcg/dL WBC 2.8 10^9/L RBC 3.56 10^12/L HGB 12.8 g/dL HCT 36.2 % MCV 101.7 fl MCH 36 pg MCHC 35.4 g/dL RDW 13 % Platelet Count 52 10^9/L MPV 11.3 fL Neutrophils (Gran) 1.576 10^9/L Lymphocytes 0.7952 10^9/L Monocytes 0.2296 10^9/L Eosinophils 0.1792 10^9/L Basophils 0.0196 10^9/L Test performed on Jul 23, 2020 13:44 Neutrophil % 53.6 % Lymphocyte % 29.8 % Monocyte % 10.4 % Eosinophil % 5.9 % Basophils % 0.3 % NRBC % 0 % AFP 7.4 ng/mL Impression: Elevated ferritin level with macrocytosis, questionable etiology Positive for rare HFE H63D homozygous mutation Ferritin level of 746 ng per mL normal being 30-400. Checked on 03/09/[address] Brian about 10 years ago, for hemochromatosis was inconclusive Hemochromatosis profile done on 04/22/2017 showed negative for C282Y mutation, negative for as S 65C mutation, homozygous H63D mutation ( Moderate risk for iron overload) Repeat ferritin was 520.6 normal being less than 388. 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 Plan: . Discussed with patient regarding his labs white blood count 2.8 hemoglobin 12.8 hematocrit 36.2 platelets 52,000 ferritin 47 Clinically, patient doing well with no new signs symptoms, patient had lab work-up done outside at [facility]. So we will continue to monitor as his ferritin is in the desirable range, patient will return to clinic in 2 months with CBC and ferritin level Signed By: Reanna Deluca M.D. <<Signature on File>>
== END 2021-01-13 13:07 | disposition home or self-care (01) ==
LOC: ONCMED 13:08
PROVIDERS: PCP Internal Medicine; Visit Provider Internal Medicine Hematology & Oncology
DX: R79.89 Other specified abnormal findings of blood chemistry (principal); D69.6 Thrombocytopenia, unspecified; K74.69 Other cirrhosis of liver; K76.6 Portal hypertension; R16.1 Splenomegaly, not elsewhere classified; K57.92 Diverticulitis of intestine, part unspecified, without perforation or abscess without bleeding; Z79.899 Other long term (current) drug therapy; Z79.84 Long term (current) use of oral hypoglycemic drugs
CPT/HCPCS: 99214

== ENCOUNTER 2021-03-18 15:11 | Outpatient (CLI) | payer OTHER, SELFPAY ==
--- NOTE | 2021-03-18 17:06 | ONC FU_ITS ---
Dr. Deluca follow up note Patient: Kris Horn Unit #: [id number]: 1960 Dicatated By: Reanna Deluca M.D.Date of Visit:Mar 18, 2021 Onc Med Follow-up/Prog Note History of Present Illness: Mr. Horn is a 60-year-old gentleman with history of elevated ferritin for long time. He was seen in [facility] [place] by Dr. Brian and workup was done for hemochromatosis. As per patient, at that time his ferritin was high but it was not confirmed whether he has hemochromatosis as expected gene mutation was not observed. But his sister has same problem and she underwent genetic evaluation and it was confirmed that she has hemochromatosis and now being managed by her vocational case manager with phlebotomies. Mr Horn reports that several years ago he was diagnosed with esophageal varices. He was referred to [facility] in [place] where he underwent procedure to treat his esophageal varices as he was bleeding profusely from there. He was treated with medicines to control his portal hypertension. At the same time he had MRI scan of the liver, which confirmed cirrhosis due to alcohol abuse. He states he quit drinking at that time and follow-up MRI scan of liver did show some improvement. And along with the liver cirrhosis he was also found to have splenomegaly which was causing thrombocytopenia and lleukopenia Mr Horn developed severe pain in his feet and he was diagnosed with plantar fasciitis. As a part of workup his primary care physician checked his iron studies and it showed an elevated ferritin level. Due to history of iron abnormality, he was referred to Dr Deluca to rule out hemochromatosis / iron overload. He is now being treated with phlebotomy to keep ferritin less than 100 Patient has type II diabetes mellitus which is being managed by oral hypoglycemic agents. He also has hepatic cirrhosis due to alcohol abuse but he quit drinking about 8 years. MRI scan of the liver done at [place] on January 12, 2020 showed cirrhotic liver with multiple cirrhotic nodules with evidence of portal hypertension including splenomegaly and multiple upper abdominal varices. No suspicious hepatic lesion seen. 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 Came for follow-up, denies any specific complaints, no fever chills, no nausea or vomiting, no diarrhea constipation, no jaundice, no melena or hematochezia, no hemoptysis or hematemesis, no dysuria or hematuria, no sore throat or recurrent infection Medications: Gabapentin 1 Capsule (of 300 mg) Oral t.i.d., MetFORMIN HCl 1 (1000 mg) Tablet Oral b.i.d., Nadolol 1 (20 mg) Tablet Oral daily, Spironolactone 1 (50 mg) Tablet Oral daily Allergies: No Known Allergies. Review of Systems: Review of Systems is not available for this patient. Vital Signs: Performed on Mar 18, 2021 16:32 Height - 73.00 in Weight - 240.2 lbs (HIGH) BSA - 2.33 sq.m BMI - 31.69 (HIGH) Temperature - 97.9 F (LOW) Pulse - 68 /min Respiration - 18 /min BP - 112/76 mm(hg) O2 Sat - 98 % Pain - 2 Fatigue - 3 Performance Status: 0 - Fully active, able to carry on all predisease activities without restrictions. (ECOG) Physical Examination: ENMT - No mouth sores, no thrush, no jaundice, Respiratory - Lungs are clear to auscultation, Cardiovascular - Regular rate and rhythm of heart, Abdomen - Soft, bowel sounds present, Extremities - No visible edema. Lab/Imaging: Test performed on Mar 09, 2021 16:39 Ferritin 62 ng/mL Test performed on Mar 09, 2021 08:25 WBC 2.5 10^9/L RBC 3.53 10^12/L HGB 12.7 g/dL HCT 36.2 % MCV 102.5 fl MCH 36.0 pg MCHC 35.1 g/dL RDW 13.5 % Platelet Count 49 10^9/L Neutrophils (Gran) 1.243 10^9/L Lymphocytes 0.878 10^9/L Monocytes 0.220 10^9/L Eosinophils 0.14 10^9/L Basophils 0.20 10^9/L Test performed on Jan 05, 2021 13:43 % Iron Saturation 41 % Iron, Total 114 mcg/dL TIBC 275 mcg/dL MPV 11.3 fL Impression: Elevated ferritin level with macrocytosis, questionable etiology Positive for rare HFE H63D homozygous mutation Ferritin level of 746 ng per mL normal being 30-400. Checked on 03/09/[address] Brian about 10 years ago, for hemochromatosis was inconclusive Hemochromatosis profile done on 04/22/2017 showed negative for C282Y mutation, negative for as S 65C mutation, homozygous H63D mutation ( Moderate risk for iron overload) Repeat ferritin was 520.6 normal being less than 388. 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 Return to clinic in 2 months with CBC and ferritin Signed By: Reanna Deluca M.D. <<Signature on File>>
== END 2021-03-18 15:12 | disposition home or self-care (01) ==
LOC: ONCMED 15:14
PROVIDERS: PCP Internal Medicine; Visit Provider Internal Medicine Hematology & Oncology
DX: R79.89 Other specified abnormal findings of blood chemistry (principal); E83.119 Hemochromatosis, unspecified; K74.60 Unspecified cirrhosis of liver; K76.6 Portal hypertension; R16.1 Splenomegaly, not elsewhere classified; D69.6 Thrombocytopenia, unspecified; D72.819 Decreased white blood cell count, unspecified; Z79.899 Other long term (current) drug therapy; Z87.19 Personal history of other diseases of the digestive system; Z87.898 Personal history of other specified conditions
CPT/HCPCS: 99214

== ENCOUNTER 2021-04-11 09:29 | Emergency (ER) | payer OTHER, SELFPAY ==
[2021-04-11 09:35] VITALS: BP 130/83; PULSE 69; RESP 16; TEMP 36.7; O2SAT 96; BMI 33.7
--- NOTE | 2021-04-11 09:51 | CTR_ITS ---
PROCEDURE INFORMATION: Exam: CT Abdomen And Pelvis With Contrast Exam date and time: 04/11/2021 9:51 AM Age: 60 years old Clinical indication: Abdominal pain; Prior surgery; Additional info: Rlq abd pain TECHNIQUE: Imaging protocol: Computed tomography of the abdomen and pelvis with contrast. Radiation optimization: All CT scans at this facility use at least one of these dose optimization techniques: automated exposure control; mA and/or kV adjustment per patient size (includes targeted exams where dose is matched to clinical indication); or iterative reconstruction. Contrast material: OMNI 300; Contrast volume: 95 ml; Contrast route: INTRAVENOUS (IV); COMPARISON: MR MRCP [id number] 07/25/2018 8:27 AM RADIATION DOSE METRICS: Total DLP (mGy-cm): 1788.59 FINDINGS: Lungs: There is diffuse peribronchial thickening, and nodular opacities in the lower lungs, left greater than right, likely representing mucous plugging. Superimposed infectious process should be excluded clinically. Liver: The liver demonstrates volume redistribution and nodular contour, consistent with cirrhosis. No discrete mass lesion seen. Gallbladder and bile ducts: The gallbladder has been surgically removed. Pancreas: Normal. No ductal dilation. Spleen: Enlarged spleen measuring 16.7 cm in AP dimension. Accessory splenules noted in the left upper quadrant. Gastroesophageal varices seen. There is cavernous transformation of the portal vein a large splenorenal shunt is present. Adrenal glands: Normal. No mass. Kidneys and ureters: Normal. No hydronephrosis. Stomach and bowel: There is nonspecific mild haziness of the fat in the right lower quadrant which may be secondary to portal hypertensive enteropathy. Enteritis/colitis should be excluded clinically. No obstruction. Appendix: No evidence of appendicitis. Intraperitoneal space: Trace amount of ascites is present. Vasculature: See Spleen finding. Lymph nodes: Unremarkable. No enlarged lymph nodes. Urinary bladder: Unremarkable as visualized. Reproductive: Unremarkable as visualized. Bones/joints: Degenerative changes of the spine seen. Soft tissues: Unremarkable. CT/CT abdomen pelvis w con* [id number] IMPRESSION: 1. Cirrhotic liver with stigmata of portal hypertension, manifested by splenomegaly, trace ascites, gastroesophageal varices and splenorenal shunt. 2. There is cavernous transformation of the portal vein and partial thrombosis of the splenorenal shunt. 3. Subtle of the fat in the right lower quadrant, which may be secondary to portal hypertensive enteropathy. Enteritis/colitis can have this appearance. 4. Mild peribronchial thickening with focal areas of mucous plugging in the lower lobes, left greater than right. Pneumonia should be excluded clinically.
--- NOTE | 2021-04-11 09:54 | W.ED.ABDPA2 ---
HPI - Abdominal Pain General: Chief Complaint: Abdominal Pain Stated Complaint: RLQ abd pain Time Seen by Provider: 04/11/21 09:44 History of Present Illness: HPI narrative: Patient comes in complaining of abdominal pain which he describes as right lower quadrant, crampy, constant, started right after breakfast. Associated with vomiting. No fever or diarrhea. Associated Symptoms: Reports vomiting; Denies fever(s) and nausea Review of Systems Const: Denies: fever(s) or body aches Eyes: Denies: change in vision or blurry vision ENMT: Denies: throat pain or odynophagia Card: Denies: chest pain or palpitations Resp: Denies: dyspnea or productive cough GI: Reports: abdominal pain and vomiting; Denies: nausea : Denies: flank pain Musc: Denies: neck pain or back pain Skin/Breast: Denies: rash or pruritus Neuro: Denies: headache(s) or numbness in extremities Psych: Denies: anxiety or change in appetite Endo: Denies: polyuria or excessive sweating PFSH ED PFSH: Social History (Updated 02/05/20 @ 16:47 by Estella Israel LPN) Smoking and tobacco status: never smoked Alcohol intake: never Physical Exam Const: COMMON NORMALS: no acute distress and patient oriented x3 EXAM LIMITATIONS: no altered mental status GENERAL APPEARANCE: cooperative, comfortable and well developed ORIENTATION/CONSCIOUSNESS: Yes awake, Yes oriented to person, Yes oriented to place and Yes oriented to time HENMT: COMMON NORMALS: normocephalic and atraumatic HEAD & SCALP: normocephalic and atraumatic Eye: COMMON NORMALS: Equal, round and reactive pupils present and EOMs intact bilaterally PUPIL: Yes Equal, round and reactive pupils present Neck/C-Spine: COMMON NORMALS: full ROM and supple Resp: COMMON NORMALS: normal respiratory effort, No retractions and clear to auscultation bilaterally AUSCULTATION: clear to auscultation bilaterally Cardio: COMMON NORMALS: regular rate and regular rhythm RATE: regular rate RHYTHM: regular rhythm GI: COMMON NORMALS: Soft to palpation INSPECTION: No abdominal distension PALPATION: Yes Soft to palpation and Yes Tenderness to palpation present (GI) Details: RLQ Back/Pelvis: COMMON NORMALS: thoraco-lumbar ROM normal Extremity: COMMON NORMALS: normal to inspection and full ROM Neuro: COMMON NORMALS: patient oriented x3 SENSORIUM/ORIENTATION: Yes oriented to person, Yes oriented to place and Yes oriented to time Course ED course: Patient comes in complaining of right lower quadrant abdominal pain that started this morning shortly after breakfast. States has been fighting a respiratory illness for the last week or so. This morning he developed the abdominal pain and after having a bowel movement also vomited. States the pain has been constant and located in his right lower quadrant which was concerning to him for appendicitis. On physical exam his abdomen is soft, nondistended, with very minimal tenderness in the right lower quadrant. Will check labs, CT scan, and reassess. Reevaluation(s): Reevaluation #1: On reassessment I talked to the patient about the test results. He states he is feeling better at this time. Will discharge with precautions to return for worsening or changing symptoms. Vital Signs: Vital signs: Vital Signs Temperature 98.1 F 04/11/21 09:35 Pulse Rate 70 04/11/21 11:20 Respiratory Rate 16 04/11/21 09:35 Blood Pressure 133/79 04/11/21 11:20 Pulse Oximetry 95 04/11/21 11:20 MDM - Abdominal Pain Lab Data: Labs: Lab Results 04/11/21 04/11/21 04/11/21 11:17 11:17 11:17 WBC 2.8 10^3/uL L 10^ 3/uL (4.0-10.0) RBC 3.47 10^6/uL L 10 ^6/uL (4.1-5.3) Hgb 12.6 g/dL g/dL (11.7-16.6) Hct 34.9 % L % (42.0-52.0) MCV 100.6 fl H fl (80-94) MCH 36.3 pg H pg (28.0-34.0) MCHC 36.1 g/dL H g/dL (30.0-36.0) RDW 14.4 % % (12.1-15.1) Plt Count 32 10^3/cmm L 10^ 3/cmm (130-400) MPV 11.8 fL H fL (7.4-10.4) Neut % (Auto) 60.1 % % Lymph % (Auto) 25.7 % % [place] % (Auto) 9.1 % % Eos % (Auto) 4.3 % % Baso % (Auto) 0.4 % % Neut # (Auto) 1.66 10^3/uL L 10 ^3/uL (1.8-7.7) Lymph # (Auto) 0.7 10^3/uL L 10^ 3/uL (0.8-4.8) [place] # (Auto) 0.3 10^3/uL 10^3/ uL (0.2-0.9) Eos # (Auto) 0.1 10^3/uL 10^3/ uL (0.0-0.8) Baso # (Auto) 0.0 10^3/uL 10^3/ uL (0.0-0.1) Nucleated RBC % (a uto) 0 % % Nucleated RBCs # 0.0 /100WBC /100W BC Sodium 133 mmol/L L mmol /L (136-145) Potassium 4.4 mmol/L mmol/L (3.5-5.1) Chloride 96 mmol/L L mmol/ L (98-107) Carbon Dioxide 29 mmol/L mmol/L (22-29) Anion Gap 12.4 (5-19) BUN 12 mg/dL mg/dL (6-20) Creatinine 0.5 mg/dL L mg/dL (0.7-1.2) GFR Calculation 170.2 mL/min H mL /min (90-130) Glucose 387 mg/dL H mg/dL (65-115) Calculated Osmolal ity 292 mOsm/kg mOsm/ kg (285-295) Lactate 5.6 mmol/L H* mmo l/L (0.5-2.2) Calcium 7.9 mg/dL L mg/dL (8.5-10.5) Total Bilirubin 2.5 mg/dL H mg/dL (0.15-1.2) AST 34 U/L U/L (0-40) ALT 24 U/L U/L (0-41) Alkaline Phosphata se 84 IU/L IU/L (40-130) Total Protein 5.8 g/dL L g/dL (6.6-8.7) Albumin 3.1 g/dL L g/dL (3.5-5.2) Globulin 2.7 g/dL g/dL (1.3-4.6) Lipase 51 U/L U/L (13-60) Discharge Plan Discharge Patient Disposition: Home Clinical Impression: Enteritis Condition: Stable Prescriptions: No Action spironolactone 25 mg tablet 50 mg PO QAM RF: 0 albuterol sulfate 2.5 mg /3 mL (0.083 %) Solution For Nebulization 2.5 mg inhalation BEDTIME RF: 0 prednisone 20 mg tablet 40 mg PO QAM RF: 0 nadolol 20 mg tablet 20 mg PO QAM RF: 0 metformin 500 mg tablet extended release 24 hr 1,000 mg PO BID RF: 0 Mucinex 600 mg Tablet Extended Release 12hr 600 mg PO DAILY RF: 0 gabapentin 300 mg capsule 600 mg PO BID RF: 0 Discharge Orders: Discharge ED (Routine); Ordered 04/11/21 Ordered By: Kadeem Whitney Referrals: Paresh Templeton DO [Primary Care Provider] - Coding Level of Care Code ED Dry Placer Machine Operator for Chg Fwd Exam Comprehensive
[2021-04-11] MEDS: iohexol 300 mg/mL 100 mL Btl IV (10:35)
[2021-04-11] MEDS: sodium chloride 0.9% 500 ML IV (11:17)
[2021-04-11 11:20] VITALS: BP 133/79; PULSE 70; O2SAT 95
[2021-04-11 11:26] LABS: Basophils % 0.4 %; Eosinophils # 0.1 10^3/uL (0.0-0.8); Eosinophils % 4.3 %; Hematocrit 34.9 % (42.0-52.0); Hemoglobin 12.6 g/dL (11.7-16.6); Lymphocytes # 0.7 10^3/uL (0.8-4.8); Lymphocytes % 25.7 %; Mean Corpuscular HGB Conc 36.1 g/dL (30.0-36.0); Mean Corpuscular Hemoglobin 36.3 pg (28.0-34.0); Mean Corpuscular Volume 100.6 fl (80-94); Mean Platelet Volume 11.8 fL (7.4-10.4); Monocytes # 0.3 10^3/uL (0.2-0.9); Monocytes % 9.1 %; Neutrophils # 1.66 10^3/uL (1.8-7.7); Neutrophils % 60.1 %; Nucleated Red Blood Cells % 0 %; Platelet Count 32 10^3/cmm (130-400); Red Blood Count 3.47 10^6/uL (4.1-5.3); Red Cell Distribution Width 14.4 % (12.1-15.1); White Blood Count 2.8 10^3/uL (4.0-10.0)
[2021-04-11 11:45] LABS: Alanine Aminotransferase 24 U/L (0-41); Albumin Level 3.1 g/dL (3.5-5.2); Alkaline Phosphatase 84 IU/L (40-130); Anion Gap 12.4 (5-19); Aspartate Amino Transferase 34 U/L (0-40); Blood Urea Nitrogen 12 mg/dL (6-20); Calcium 7.9 mg/dL (8.5-10.5); Carbon Dioxide 29 mmol/L (22-29); Chloride 96 mmol/L (98-107); Globulin 2.7 g/dL (1.3-4.6); Glomerular Filtration Rate 170.2 mL/min (90-130); Glucose 387 mg/dL (65-115); Lipase 51 U/L (13-60); Osmolality Calculated 292 mOsm/kg (285-295); Potassium 4.4 mmol/L (3.5-5.1); Sodium 133 mmol/L (136-145); Total Bilirubin 2.5 mg/dL (0.15-1.2); Total Protein 5.8 g/dL (6.6-8.7)
[2021-04-11 11:48] LABS: Lactate (Lactic Acid level) 5.6 mmol/L (0.5-2.2)
[2021-04-11 12:18] VITALS: BP 133/79; PULSE 67; O2SAT 97
== END 2021-04-11 12:20 | disposition home or self-care (01) ==
PROVIDERS: Emergency Provider Emergency Medicine; PCP Internal Medicine
DX: K52.9 Noninfective gastroenteritis and colitis, unspecified (principal)
CPT/HCPCS: 74177; 80053; 83605; 83690; 85025; 96360; 99283; J7040; Q9967

== ENCOUNTER 2021-05-19 15:00 | Outpatient (CLI) | payer OTHER, SELFPAY ==
--- NOTE | 2021-05-19 16:28 | ONC FU_ITS ---
Dr. Deluac follow up note Patient: Kris Horn Unit #: [id number]: 1960 Dicatated By: Reanna Deluca M.D.Date of Visit:May 19, 2021 Onc Med Follow-up/Prog Note History of Present Illness: Mr. Horn is a 60-year-old gentleman with history of elevated ferritin for long time. He was seen in [facility] [place] clinic by Dr. Brian and workup was done for hemochromatosis. As per patient, at that time his ferritin was high but it was not confirmed whether he has hemochromatosis as expected gene mutation was not observed. But his sister has same problem and she underwent genetic evaluation and it was confirmed that she has hemochromatosis and now being managed by her bulb grader with phlebotomies. Mr Horn reports that several years ago he was diagnosed with esophageal varices. He was referred to [facility] in [place] where he underwent procedure to treat his esophageal varices as he was bleeding profusely from there. He was treated with medicines to control his portal hypertension. At the same time he had MRI scan of the liver, which confirmed cirrhosis due to alcohol abuse. He states he quit drinking at that time and follow-up MRI scan of liver did show some improvement. And along with the liver cirrhosis he was also found to have splenomegaly which was causing thrombocytopenia and lleukopenia Mr Horn developed severe pain in his feet and he was diagnosed with plantar fasciitis. As a part of workup his primary care physician checked his iron studies and it showed an elevated ferritin level. Due to history of iron abnormality, he was referred to Dr Deluca to rule out hemochromatosis / iron overload. He is now being treated with phlebotomy to keep ferritin less than 100 Patient has type II diabetes mellitus which is being managed by oral hypoglycemic agents. He also has hepatic cirrhosis due to alcohol abuse but he quit drinking about 8 years. MRI scan of the liver done at [facility] on January 12, 2020 showed cirrhotic liver with multiple cirrhotic nodules with evidence of portal hypertension including splenomegaly and multiple upper abdominal varices. No suspicious hepatic lesion seen. 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 Came for follow-up, denies any specific complaints, no fever chills, no nausea or vomiting, no diarrhea constipation, no melena hematochezia, no hemoptysis hematemesis, no headaches blurred vision double vision, no chest pain or palpitation Medications: Gabapentin 1 Capsule (of 300 mg) Oral t.i.d., MetFORMIN HCl 1 (1000 mg) Tablet Oral b.i.d., Nadolol 1 (20 mg) Tablet Oral daily, Spironolactone 1 (50 mg) Tablet Oral daily Allergies: No Known Allergies. Review of Systems: Review of Systems is not available for this patient. Vital Signs: Performed on May 19, 2021 15:24 Height - 73.00 in Weight - 237.4 lbs (LOW) BSA - 2.31 sq.m BMI - 31.32 (HIGH) Temperature - 97.0 F (LOW) Pulse - 69 /min Respiration - 18 /min BP - 131/85 mm(hg) O2 Sat - 97 % Pain - 5 Fatigue - 0 Performance Status: 0 - Fully active, able to carry on all predisease activities without restrictions. (ECOG) Physical Examination: ENMT - No mouth sores, no thrush, no jaundice, Respiratory - Lungs are clear to auscultation, Cardiovascular - Regular rate and rhythm of heart, Abdomen - Soft, bowel sounds present, Extremities - No visible edema. Lab/Imaging: Test performed on May 08, 2021 11:45 Ferritin 82 ng/mL WBC 3.3 10^9/L RBC 3.84 10^12/L HGB 13.6 g/dL HCT 38.6 % MCV 100.5 fl MCH 35.4 pg MCHC 35.2 g/dL RDW 13.2 % Platelet Count 59 10^9/L MPV 12.1 fL Neutrophils (Gran) 57.4 10^9/L Lymphocytes 0.9141 10^9/L Monocytes 0.3102 10^9/L Eosinophils 0.1419 10^9/L Basophils 0.0396 10^9/L Test performed on Jan 05, 2021 13:43 % Iron Saturation 41 % Iron, Total 114 mcg/dL TIBC 275 mcg/dL Impression: Elevated ferritin level with macrocytosis, questionable etiology Positive for rare HFE H63D homozygous mutation Ferritin level of 746 ng per mL normal being 30-400. Checked on 03/09/[address] Brian about 10 years ago, for hemochromatosis was inconclusive Hemochromatosis profile done on 04/22/2017 showed negative for C282Y mutation, negative for as S 65C mutation, homozygous H63D mutation ( Moderate risk for iron overload) Repeat ferritin was 520.6 normal being less than 388. 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 Plan: Discussed with patient regarding his labs white blood count three-point hemoglobin 13.6 hematocrit 38.6 platelets 59,000 compared to 49,000 previously ferritin 82 compared to 62 previously Clinically, patient is doing well with no new signs symptoms. His follow-up lab work-up shows ferritin below 100 and persistent bicytopenia but stable, at this point, will continue to monitor return to clinic in 1 month with CBC and ferritin. As per patient , his is retiring in June 2021 so there is a possibility his insurance might change, so he will call us if there is any change in coverage Signed By: Reanna Deluca M.D. <<Signature on File>>
== END 2021-05-19 15:01 | disposition home or self-care (01) ==
LOC: ONCMED 15:04
PROVIDERS: PCP Internal Medicine; Visit Provider Internal Medicine Hematology & Oncology
DX: D75.89 Other specified diseases of blood and blood-forming organs (principal); R79.89 Other specified abnormal findings of blood chemistry; E11.9 Type 2 diabetes mellitus without complications; K74.60 Unspecified cirrhosis of liver; K76.0 Fatty (change of) liver, not elsewhere classified; I81 Portal vein thrombosis; Z79.899 Other long term (current) drug therapy
CPT/HCPCS: 99214

== ENCOUNTER 2021-12-15 11:47 | Oncology outpatient (recurring) (ONCR) | payer OTHER, SELFPAY | END 2021-12-16 23:59 | disposition home or self-care (01) | PROVIDERS: PCP Internal Medicine; Visit Provider Internal Medicine Hematology & Oncology | DX: E83.119 Hemochromatosis, unspecified ==

== ENCOUNTER → 2022-11-09 08:51 | Outpatient (BNVA) | payer OTHER, SELFPAY | PROVIDERS: PCP Internal Medicine; Visit Provider Podiatrist Foot & Ankle Surgery | DX: G57.62 Lesion of plantar nerve, left lower limb (principal) | CPT/HCPCS: 73630 ==

== ENCOUNTER 2022-11-19 10:25 | Outpatient (CLI) | payer OTHER, SELFPAY ==
--- NOTE | 2022-11-19 10:45 | US_ITS ---
WS: [id number] ULTRASOUND SOFT TISSUES bilateral feet, HISTORY: evaluate Gutiérrez's Neuroma COMPARISON: None available. TECHNIQUE: 2-D and color Doppler imaging is submitted. Ultrasound is directed intertarsal of both the LEFT and the RIGHT feet. No masses are identified betw een the metatarsal heads. There is no evidence for Gutiérrez's neuroma. Also no fluid collections. US/US soft tissue/extremity [id number] IMPRESSION: Negative bilateral feet ultrasound for Gutiérrez's neuroma.
== END 2022-11-19 10:26 | disposition home or self-care (01) ==
LOC: RAD 10:30
PROVIDERS: PCP Internal Medicine; Visit Provider Podiatrist Foot & Ankle Surgery
DX: G57.62 Lesion of plantar nerve, left lower limb (principal); G57.81 Other specified mononeuropathies of right lower limb
CPT/HCPCS: 76882

== ENCOUNTER 2023-02-17 16:42 | Emergency (ER) | payer OTHER, SELFPAY ==
[2023-02-17 16:42] VITALS: BP 117/63; PULSE 70; TEMP 37.2; O2SAT 94; BMI 28.1
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
[2023-02-17 17:17] LABS: Basophils % 0.9 %; Eosinophils # 0.3 10^3/uL (0.0-0.8); Eosinophils % 7.2 %; Hematocrit 31.1 % (37-53); Lymphocytes # 1.3 10^3/uL (0.8-4.8); Lymphocytes % 28.3 %; Mean Corpuscular Hemoglobin 36.5 pg (27-33); Mean Platelet Volume 11.4 fL (7.4-10.4); Monocytes # 0.4 10^3/uL (0.2-0.9); Monocytes % 8.5 %; Neutrophils # 2.48 10^3/uL (1.8-7.7); Nucleated Red Blood Cells % 0 %; Platelet Count 51 10^3/cmm (157-399); Red Blood Count 2.99 10^6/uL (3.85-5.65); Red Cell Distribution Width 15.2 % (12.1-15.1); White Blood Count 4.59 10^3/uL (3.29-11.43)
[2023-02-17 17:22] VITALS: BP 109/69; PULSE 66; RESP 18; O2SAT 95
[2023-02-17 17:40] VITALS: BP 107/67; PULSE 67; RESP 29; O2SAT 96
[2023-02-17 17:42] LABS: Alanine Aminotransferase 19 U/L (0-41); Albumin Level 2.7 g/dL (3.5-5.2); Alkaline Phosphatase 75 U/L (40-130); Blood Urea Nitrogen 10 mg/dL (8-23); Calcium 7.4 mg/dL (8.5-10.5); Carbon Dioxide 25 mmol/L (22-29); Chloride 103 mmol/L (98-107); Globulin 2.5 g/dL (1.3-4.6); Glucose 205 mg/dL (65-115); Osmolality Calculated 283 mOsm/kg (285-295); Sodium 134 mmol/L (136-145); Total Bilirubin 3.8 mg/dL (0.15-1.2); Total Protein 5.2 g/dL (6.6-8.7)
[2023-02-17 17:47] LABS: Anion Gap 10.6 (5-19); Aspartate Amino Transferase 52 U/L (0-40); Potassium 4.6 mmol/L (3.5-5.1)
[2023-02-17] MEDS: ondansetron 2 mg/ML SDV 2 mL 4 MG IVP (18:22)
[2023-02-17] MEDS: morphine 4 mg/mL SDV 1 mL IVP (18:22)
[2023-02-17] MEDS: iohexol 350 mg/mL 500 mL Btl (per mL) IV (18:45)
--- NOTE | 2023-02-17 18:57 | XRR_ITS ---
PROCEDURE INFORMATION: Exam: XR Chest Exam date and time: 02/17/2023 7:22 PM Age: 62 years old Clinical indication: Device placement; Chest tube; Additional info: Post chest tube TECHNIQUE: Imaging protocol: Radiologic exam of the chest. Views: 1 view. COMPARISON: CT chest abdpel w/*[id number] 02/17/2023 6:27 PM FINDINGS: Tubes, catheters and devices: Right-sided thoracostomy tube noted, with tip overlying the right upper lung. Lungs: Scattered areas of mild atelectasis. No consolidation. Pleural spaces: No radiographic evidence of residual right pneumothorax. Heart/Mediastinum: No cardiomegaly. Bones/joints: Unremarkable. XR/XR chest 1V portable [id number] IMPRESSION: 1. Right-sided thoracostomy tube noted, with tip overlying the right upper lung. 2. No radiographic evidence of residual right pneumothorax.
[2023-02-17 19:15] VITALS: BP 105/73; PULSE 68; RESP 16; O2SAT 95
[2023-02-17] MEDS: HYDROmorphone 1 mg/mL INJ 1 mL IVP (19:22)
[2023-02-17] MEDS: propofol 10 mg/mL SDV 20 mL 100 MG IVP (19:28)
[2023-02-17 19:30] VITALS: BP 106/59; PULSE 67; RESP 18; O2SAT 100
--- NOTE | 2023-02-17 19:52 | PC.NURSE ---
50 mg of Propofol administered IVP at 1909 per MD orders at bedside. 50 mg of Propofol in syringe wasted in sharps along with Propofol vial in room with Flaquita Dhillon RN.
[2023-02-17 19:55] VITALS: BP 106/59; PULSE 67; RESP 18; TEMP 37.2; O2SAT 100
== END 2023-02-17 19:57 | disposition short-term general hospital (02) ==
PROVIDERS: Family Medicine; Emergency Provider Emergency Medicine; PCP Internal Medicine
DX: S30.811A Abrasion of abdominal wall, initial encounter (principal); J93.9 Pneumothorax, unspecified; S22.41XA Multiple fractures of ribs, right side, initial encounter for closed fracture; S27.331A Laceration of lung, unilateral, initial encounter; J90 Pleural effusion, not elsewhere classified; K74.60 Unspecified cirrhosis of liver; E11.9 Type 2 diabetes mellitus without complications; V09.09XA Pedestrian injured in nontraffic accident involving other motor vehicles, initial encounter
CPT/HCPCS: 32551; 70450; 71045; 71260; 72125; 74177; 80053; 85025; 96374; 96375; 99291; J1170; J2270; J2405; J2704; Q9967